=== PATIENT | male | born 1950 | race Caucasian/White ===

== ENCOUNTER 2017-05-11 14:01 | Inpatient (IN) | payer BC ==
[2017-05-11] MEDS ORDERED: KETOROLAC 30 MG/ML 1 ML VIAL IVP STA (15:29)
[2017-05-11] MEDS ORDERED: IPRATROPIUM-ALBUTEROL 3 ML NEB INHALATION STA (15:29)
[2017-05-11] MEDS ORDERED: SODIUM CHLORIDE 0.9% 1,000 ML IV STA ×2 (15:29)
[2017-05-11] MEDS ORDERED: ACETAMINOPHEN IV (For NPO) 1,000 MG in EMPTY BAG 1 BAG IVPB STA (15:29)
[2017-05-11] MEDS ORDERED: ONDANSETRON 4 MG/2 ML VIAL IVP STA (15:29)
[2017-05-11] MEDS ORDERED: SODIUM CHLORIDE 0.9% 500 ML IV STA (15:29)
[2017-05-11] MEDS ORDERED: MORPHINE SULFATE 4 MG/ML SYRINGE IV STA (15:29)
[2017-05-11 15:56] LABS: Appearance,Urine Clear (Clear); Bilirubin,Urine Negative (Negative); Blood,Urine Negative (Negative); Color,Urine Light Yellow; Glucose,Urine (UA) Trace (Negative); Ketones,Urine Trace (Negative); Leukocyte Esterase,Urine Negative (Negative); Nitrite,Urine Negative (Negative); PH, Urine 8.5 (5.0-8.0); Protein,Urine Negative (Negative); Specific Gravity,Urine 1.008 (1.001-1.035); Urobilinogen,Urine <2.0 mg/dL (<2.0)
[2017-05-11 15:58] LABS: Basophils % (A) 0 %; Eosinophils # (A) 0.1 k/uL (0-0.7); Eosinophils % (A) 1 %; HCT 46.3 % (39.0-53.0); HGB 17.1 gm/dL (13.0-17.5); Hyperchromasia Slight; Lymphocytes # (A) 2.6 k/uL (1.0-4.8); Lymphocytes % (A) 32 %; MCHC 36.9 g/dL (31.0-37.0); MCV 89.3 fL (80.0-100.0); Mean Platelet Volume 7.8; Monocytes # (A) 0.5 k/uL (0-1.0); Monocytes % (A) 6 %; Neutrophils # (A) 4.8 k/uL (1.3-7.7); Neutrophils % (A) 59 %; Platelet Count 291 k/uL (150-450); RBC 5.19 m/uL (4.30-5.90); RDW 12.6 % (11.5-15.5); WBC 8.2 k/uL (3.8-10.6)
--- NOTE | 2017-05-11 16:00 | ED ---
General Adult HPI - General Chief complaint: Shortness of Breath Stated complaint: fever-sent by Time Seen by Provider: 05/11/17 14:36 Source: patient, family, RN notes reviewed, old records reviewed Mode of arrival: wheelchair Limitations: no limitations - History of Present Illness Initial comments: This is a 66-year-old male the ER for evaluation today. Patient was essay for evaluation of multiple complaints. Patient has no significant medical history takes no medications. No history of smoking. Patient has cough congestion recent weakness fatigue and diffuse body pains. Patient has chills and sweats. Shortness of breath. Patient has not been out of bed in 2 days. No prior travel history otherwise, noted no sick contacts - Related Data Home Medications Medication Instructions Recorded Confirmed Zolpidem Tartrate [Ambien Cr] 12.5 mg PO HS 01/12/16 05/11/17 Schneider-3 Fatty Acids/Fish Oil [Fish 1 cap PO DAILY 05/11/17 05/11/17 Oil 1,000 mg Softgel] Allergies Allergy/AdvReac Type Severity Reaction Status Date / Time ciprofloxacin [From Cipro] Allergy Itching Verified 05/11/17 15:32 Review of Systems ROS Statement: Those systems with pertinent positive or pertinent negative responses have been documented in the HPI. ROS Other: All systems not noted in ROS Statement are negative. Past Medical History Past Medical History: Osteoarthritis (OA) Additional Past Medical History / Comment(s): History of Diverticulitis; Kidney Stones, vertigo History of Any Multi-Drug Resistant Organisms: None Reported Past Surgical History: Appendectomy, Back Surgery, Hernia Repair, Orthopedic Surgery Additional Past Surgical History / Comment(s): stated "removed 1/2 of my lt wrist 02-13-15",[facility], cataract sx. Past Anesthesia/Blood Transfusion Reactions: No Reported Reaction Additional Past Anesthesia/Blood Transfusion Reaction / Comment(s): claustrophobia,no hx blood transfusion Past Psychological History: No Psychological Hx Reported Smoking Status: Never smoker Past Alcohol Use History: None Reported Past Drug Use History: None Reported - Past Family History Brother(s) Additional Family Medical History / Comment(s): Agnieszka Gehrig's Disease Mother Family Medical History: No Reported History Additional Family Medical History / Comment(s): mostly in good health-did have valley fever(lost 1 toe) Father Family Medical History: No Reported History General Exam Limitations: no limitations General appearance: alert, in no apparent distress Head exam: Present: atraumatic, normocephalic, normal inspection Eye exam: Present: normal appearance, PERRL, EOMI. Absent: scleral icterus, conjunctival injection, periorbital swelling ENT exam: Present: normal exam, mucous membranes moist Neck exam: Present: normal inspection. Absent: tenderness, meningismus, lymphadenopathy Respiratory exam: Present: accessory muscle use, decreased breath sounds, prolonged expiratory. Absent: normal lung sounds bilaterally, respiratory distress, wheezes, rales, rhonchi, stridor Cardiovascular Exam: Present: regular rate, normal rhythm, normal heart sounds. Absent: systolic murmur, diastolic murmur, rubs, gallop, clicks GI/Abdominal exam: Present: soft, normal bowel sounds. Absent: distended, tenderness, guarding, rebound, rigid Extremities exam: Present: normal inspection, full ROM, normal capillary refill. Absent: tenderness, pedal edema, joint swelling, calf tenderness Back exam: Present: normal inspection Neurological exam: Present: alert, oriented X3, CN II-XII intact Psychiatric exam: Present: normal affect, normal mood Skin exam: Present: warm, dry, intact, normal color. Absent: rash Course Vital Signs 05/11/17 05/11/17 05/11/17 14:47 14:59 16:23 Temperature 97.7 F Pulse Rate 69 72 Respiratory 20 21 Rate Blood Pressure 111/78 O2 Sat by Pulse Oximetry 05/11/17 05/11/17 05/11/17 16:33 16:53 18:00 Temperature Pulse Rate 72 67 73 Respiratory 14 16 Rate Blood Pressure 119/63 122/71 O2 Sat by Pulse 98 96 Oximetry - Reevaluation(s) Reevaluation #1: 05/11/17 19:18 Patient is improved with breathing treatment, fever control and fluids EKG Findings - EKG Comments: EKG Findings:: EKG shows normal sinus rhythm rate of 70, NH 138, QRS 82, QTc 442 Medical Decision Making - Medical Decision Making 66 male the ER with aches pains fevers chills, positive pneumonia, no negative BNP, patient will be admitted for cardiology evaluation, pulmonary treatment - Lab Data Result diagrams: 05/11/17 14:40 05/11/17 14:40 Lab Results 05/11/17 05/11/17 05/11/17 Range/Units 14:40 14:40 14:40 WBC 8.2 (3.8-10.6) k/uL RBC 5.19 (4.30-5.90) m/uL Hgb 17.1 (13.0-17.5) gm/dL Hct 46.3 (39.0-53.0) % MCV 89.3 (80.0-100.0) fL MCH 33.0 (25.0-35.0) pg MCHC 36.9 (31.0-37.0) g/dL RDW 12.6 (11.5-15.5) % Plt Count 291 (150-450) k/uL Neutrophils % 59 % Lymphocytes % 32 % Monocytes % 6 % Eosinophils % 1 % Basophils % 0 % Neutrophils # 4.8 (1.3-7.7) k/uL Lymphocytes # 2.6 (1.0-4.8) k/uL Monocytes # 0.5 (0-1.0) k/uL Eosinophils # 0.1 (0-0.7) k/uL Basophils # 0.0 (0-0.2) k/uL Hyperchromasia Slight VBG pH (7.31-7.41) VBG pCO2 (37-51) mmHg VBG HCO3 (24-28) mmol/L Sodium 140 (137-145) mmol/L Potassium 4.5 (3.5-5.1) mmol/L Chloride 101 (98-107) mmol/L Carbon Dioxide 24 (22-30) mmol/L Anion Gap 15 mmol/L BUN 13 (9-20) mg/dL Creatinine 0.70 (0.66-1.25) mg/dL Est GFR (CKD-EPI)AfAm >90 (>60 ml/min/1.73 sqM) Est GFR (CKD-EPI)NonAf >90 (>60 ml/min/1.73 sqM) Glucose 123 H (74-99) mg/dL Lactic Ac Sepsis Rflx Plasma Lactic Acid Henry (0.7-2.0) mmol/L Calcium 10.1 (8.4-10.2) mg/dL Phosphorus 2.5 (2.5-4.5) mg/dL Magnesium 2.0 (1.6-2.3) mg/dL Total Bilirubin 0.8 (0.2-1.3) mg/dL AST 39 (17-59) U/L ALT 53 (21-72) U/L Alkaline Phosphatase 110 (38-126) U/L Total Creatine Kinase 57 (55-170) U/L CK-MB (CK-2) 0.4 (0.0-2.4) ng/mL CK-MB (CK-2) Rel Index 0.7 Troponin I <0.012 (0.000-0.034) ng/mL NT-Pro-B Natriuret Pep pg/mL Total Protein 7.7 (6.3-8.2) g/dL Albumin 4.5 (3.5-5.0) g/dL Urine Color Urine Appearance (Clear) Urine pH (5.0-8.0) Ur Specific Madison (1.001-1.035) Urine Protein (Negative) Urine Glucose (UA) (Negative) Urine Ketones (Negative) Urine Blood (Negative) Urine Nitrite (Negative) Urine Bilirubin (Negative) Urine Urobilinogen (<2.0) mg/dL Ur Leukocyte Esterase (Negative) Acetone, Qual Negative (Negative) 05/11/17 05/11/17 05/11/17 Range/Units 14:40 14:40 14:40 WBC (3.8-10.6) k/uL RBC (4.30-5.90) m/uL Hgb (13.0-17.5) gm/dL Hct (39.0-53.0) % MCV (80.0-100.0) fL MCH (25.0-35.0) pg MCHC (31.0-37.0) g/dL RDW (11.5-15.5) % Plt Count (150-450) k/uL Neutrophils % % Lymphocytes % % Monocytes % % Eosinophils % % Basophils % % Neutrophils # (1.3-7.7) k/uL Lymphocytes # (1.0-4.8) k/uL Monocytes # (0-1.0) k/uL Eosinophils # (0-0.7) k/uL Basophils # (0-0.2) k/uL Hyperchromasia VBG pH (7.31-7.41) VBG pCO2 (37-51) mmHg VBG HCO3 (24-28) mmol/L Sodium (137-145) mmol/L Potassium (3.5-5.1) mmol/L Chloride (98-107) mmol/L Carbon Dioxide (22-30) mmol/L Anion Gap mmol/L BUN (9-20) mg/dL Creatinine (0.66-1.25) mg/dL Est GFR (CKD-EPI)AfAm (>60 ml/min/1.73 sqM) Est GFR (CKD-EPI)NonAf (>60 ml/min/1.73 sqM) Glucose (74-99) mg/dL Lactic Ac Sepsis Rflx Plasma Lactic Acid Henry 2.5 H* (0.7-2.0) mmol/L Calcium (8.4-10.2) mg/dL Phosphorus (2.5-4.5) mg/dL Magnesium (1.6-2.3) mg/dL Total Bilirubin (0.2-1.3) mg/dL AST (17-59) U/L ALT (21-72) U/L Alkaline Phosphatase (38-126) U/L Total Creatine Kinase (55-170) U/L CK-MB (CK-2) (0.0-2.4) ng/mL CK-MB (CK-2) Rel Index Troponin I (0.000-0.034) ng/mL NT-Pro-B Natriuret Pep 32 pg/mL Total Protein (6.3-8.2) g/dL Albumin (3.5-5.0) g/dL Urine Color Light Yellow Urine Appearance Clear (Clear) Urine pH 8.5 H (5.0-8.0) Ur Specific Madison 1.008 (1.001-1.035) Urine Protein Negative (Negative) Urine Glucose (UA) Trace H (Negative) Urine Ketones Trace H (Negative) Urine Blood Negative (Negative) Urine Nitrite Negative (Negative) Urine Bilirubin Negative (Negative) Urine Urobilinogen <2.0 (<2.0) mg/dL Ur Leukocyte Esterase Negative (Negative) Acetone, Qual (Negative) 05/11/17 05/11/17 Range/Units 15:50 16:13 WBC (3.8-10.6) k/uL RBC (4.30-5.90) m/uL Hgb (13.0-17.5) gm/dL Hct (39.0-53.0) % MCV (80.0-100.0) fL MCH (25.0-35.0) pg MCHC (31.0-37.0) g/dL RDW (11.5-15.5) % Plt Count (150-450) k/uL Neutrophils % % Lymphocytes % % Monocytes % % Eosinophils % % Basophils % % Neutrophils # (1.3-7.7) k/uL Lymphocytes # (1.0-4.8) k/uL Monocytes # (0-1.0) k/uL Eosinophils # (0-0.7) k/uL Basophils # (0-0.2) k/uL Hyperchromasia VBG pH 7.43 H (7.31-7.41) VBG pCO2 33 L (37-51) mmHg VBG HCO3 22 L (24-28) mmol/L Sodium (137-145) mmol/L Potassium (3.5-5.1) mmol/L Chloride (98-107) mmol/L Carbon Dioxide (22-30) mmol/L Anion Gap mmol/L BUN (9-20) mg/dL Creatinine (0.66-1.25) mg/dL Est GFR (CKD-EPI)AfAm (>60 ml/min/1.73 sqM) Est GFR (CKD-EPI)NonAf (>60 ml/min/1.73 sqM) Glucose (74-99) mg/dL Lactic Ac Sepsis Rflx Y Plasma Lactic Acid Henry (0.7-2.0) mmol/L Calcium (8.4-10.2) mg/dL Phosphorus (2.5-4.5) mg/dL Magnesium (1.6-2.3) mg/dL Total Bilirubin (0.2-1.3) mg/dL AST (17-59) U/L ALT (21-72) U/L Alkaline Phosphatase (38-126) U/L Total Creatine Kinase (55-170) U/L CK-MB (CK-2) (0.0-2.4) ng/mL CK-MB (CK-2) Rel Index Troponin I (0.000-0.034) ng/mL NT-Pro-B Natriuret Pep pg/mL Total Protein (6.3-8.2) g/dL Albumin (3.5-5.0) g/dL Urine Color Urine Appearance (Clear) Urine pH (5.0-8.0) Ur Specific Madison (1.001-1.035) Urine Protein (Negative) Urine Glucose (UA) (Negative) Urine Ketones (Negative) Urine Blood (Negative) Urine Nitrite (Negative) Urine Bilirubin (Negative) Urine Urobilinogen (<2.0) mg/dL Ur Leukocyte Esterase (Negative) Acetone, Qual (Negative) - Radiology Data Radiology results: report reviewed (CTA chest CT abdomen and pelvis positive for CHF type of issue, likely atypical pneumonia), image reviewed Disposition Clinical Impression: Acute pulmonary edema, Community acquired pneumonia Disposition: ADMITTED IP TO THIS HOSP Condition: Good Referrals: Misael Carpio MD [Primary Care Provider] - 1-2 days
[2017-05-11 16:08] LABS: VBG PH 7.43 (7.31-7.41)
[2017-05-11 16:10] LABS: ALT 53 U/L (21-72); AST 39 U/L (17-59); Albumin 4.5 g/dL (3.5-5.0); Alkaline Phosphatase 110 U/L (38-126); Anion Gap 15 mmol/L; Blood Urea Nitrogen 13 mg/dL (9-20); Calcium 10.1 mg/dL (8.4-10.2); Carbon Dioxide 24 mmol/L (22-30); Chloride 101 mmol/L (98-107); Glucose 123 mg/dL (74-99); Phosphorus 2.5 mg/dL (2.5-4.5); Potassium 4.5 mmol/L (3.5-5.1); Sodium 140 mmol/L (137-145); Total Bilirubin 0.8 mg/dL (0.2-1.3); Total Protein 7.7 g/dL (6.3-8.2)
[2017-05-11 16:24] LABS: Creatine Kinase 57 U/L (55-170)
[2017-05-11 16:36] LABS: Creatine Kinase MB 0.4 ng/mL (0.0-2.4); Troponin I <0.012 ng/mL (0.000-0.034)
[2017-05-11] MEDS ORDERED: RX INFO: IV CONTRAST WAS GIVEN 1 EACH MISC MISCELLANE PRN (17:04)
--- NOTE | 2017-05-11 17:48 | CT ---
EXAMINATION TYPE: CT angio chest DATE OF EXAM: 05/11/2017 COMPARISON: Prior CTA chest March 03, 2015 HISTORY: Fever CT DLP: 456.6 mGycm. Automated Exposure Control for Dose Reduction was Utilized. CONTRAST: CTA scan of the thorax is performed with IV Contrast, patient injected with 100ml mL of Omnipaque 350 , pulmonary embolism protocol. MIP Images are created on CT scanner and reviewed. FINDINGS: LUNGS: There is respiratory motion artifact degradation making evaluation suboptimal particularly for subcentimeter nodularity. Some increased groundglass opacity bilaterally could reflect mild diffuse edema. No suspicious focal consolidation is present. No pleural effusion or pneumothorax is seen. No suspicious pulmonary mass identified. Tracheobronchial tree is patent. MEDIASTINUM: There is suboptimal study with poor bolus and near equal contrast in right and left hear t systems. There is no central pulmonary embolism, smaller segmental and subsegmental PE cannot be e xcluded on this exam. There are no greater than 1 cm hilar or mediastinal lymph nodes. There is tiny pericardial effusion seen inferiorly. Mild cardiomegaly is present. There is coronary artery calcific ation which is noted marker for coronary artery disease. OTHER: Please refer to same day CT abdomen and pelvis study for complete details on upper abdomen. IMPRESSION: 1. Suboptimal study without large central pulmonary embolism, smaller segmental and subsegmental PE c annot be excluded on this study. 2. Mild cardiomegaly with mild diffuse bilateral alveolar edema suspected, correlate for CHF exacerba tion. No suspicious focal consolidation noted.
--- NOTE | 2017-05-11 18:35 | CT ---
EXAMINATION TYPE: CT abdomen pelvis w con DATE OF EXAM: 05/11/2017 COMPARISON: CT abdomen and pelvis January 15, 2016 HISTORY: Fever CT DLP: 1007.5 mGycm, Automated Exposure Control for Dose Reduction was Utilized. CONTRAST: CT scan of the abdomen and pelvis is performed without oral but with IV Contrast, patient injected wi th 100ml mL of Omnipaque 300. FINDINGS: LUNG BASES: Please refer to same day CTA chest report. LIVER/GB: Visualized liver is hypodense consistent with fatty infiltration. PANCREAS: No significant abnormality is seen. SPLEEN: No significant abnormality is seen. ADRENALS: No significant abnormality is seen. KIDNEYS: No significant abnormality is seen. BOWEL: Evaluation of bowel is suboptimal secondary to lack of enteric contrast. There is no suspiciou s small or large bowel dilatation. There are diverticula scattered throughout the colon. There is no convincing CT evidence for acute diverticulitis. PROSTATE/SEMINAL VESICLES: No gross abnormality seen. LYMPH NODES: No greater than 1cm abdominal or pelvic lymph nodes are appreciated. OSSEOUS STRUCTURES: There is reversal of normal lumbar lordosis with moderate to advanced multilevel spurring and disc space narrowing most prominent L2-L3 and L4-L5 levels. Posterior spur disc complexe s effacing anterior thecal sac at L2-L3 level. OTHER: Numerous coils from left inguinal hernia repair surgery are identified in the left groin. IMPRESSION: Diverticulosis without CT evidence for acute diverticulitis. No suspicious acute finding is seen to account for patient's symptoms of fever.
[2017-05-11] MEDS ORDERED: AZITHROMYCIN 500 MG in SODIUM CHLORIDE 0.9% 250 ML IVPB STA (19:16)
[2017-05-11] MEDS ORDERED: IPRATROPIUM-ALBUTEROL 3 ML NEB INHALATION PRN (19:16)
[2017-05-11] MEDS ORDERED: PIPERACILLIN-TAZOBACTAM 3.375 GM in DEXTROSE/WATER 1 50ML.BAG IVPB STA (19:16)
[2017-05-11] MEDS ORDERED: cefTRIAXone IN SWFI 1,000 MG/10 ML SYRINGE IVP STA (19:16)
[2017-05-11] MEDS ORDERED: PNEUMONIA PROTOCOL UTILIZED 1 EACH MISC PO PRN (19:16)
[2017-05-11] MEDS ORDERED: HYDROcodone/APAP 5-325MG 1 EACH TAB PO STA (23:53)
[2017-05-12] MEDS: SODIUM CHLORIDE 0.9% 1,000 ML IV SCH ×3 (00:19→15:57)
[2017-05-12] MEDS: ZOLPIDEM 10 MG TAB PO SCH ×2 (00:27→22:32)
[2017-05-12] MEDS: PIPERACILLIN-TAZOBACTAM 3.375 GM in DEXTROSE/WATER 1 50ML.BAG IVPB SCH ×2 (00:27→07:58)
[2017-05-12] MEDS: AZITHROMYCIN 500 MG TAB PO SCH (07:58)
[2017-05-12] MEDS: cefTRIAXone IN SWFI 1,000 MG/10 ML SYRINGE IVP SCH (07:58)
[2017-05-12] MEDS: ACETAMINOPHEN TAB 325 MG TAB PO PRN ×2 (07:59→20:33)
--- NOTE | 2017-05-12 08:37 | XR ---
EXAMINATION TYPE: XR chest 2V DATE OF EXAM: 05/12/2017 COMPARISON: 01/15/2016 INDICATION: Pneumonia TECHNIQUE: Frontal and lateral views of the chest are obtained. FINDINGS: The heart size is normal. The pulmonary vasculature is normal. The lungs are clear. IMPRESSION: 1. No acute pulmonary process.
--- NOTE | 2017-05-12 15:49 | US ---
EXAMINATION TYPE: US venous doppler duplex LE BI DATE OF EXAM: 05/12/2017 3:37 PM COMPARISON: NONE CLINICAL HISTORY: r/o dvt. Bilateral knee pain SIDE PERFORMED: Bilateral TECHNIQUE: The lower extremity deep venous system is examined utilizing real time linear array sonog cole with graded compression, doppler sonography and color-flow sonography. VESSELS IMAGED: External Iliac Vein (EIV) Common Femoral Vein Deep Femoral Vein Greater Saphenous Vein * Femoral Vein Popliteal Vein Small Saphenous Vein * Proximal Calf Veins (* superficial vessels) Right Leg: Appears negative for DVT Left Leg: Appears negative for DVT IMPRESSION: 1. No diagnostic evidence of DVT
[2017-05-12] MEDS: ENOXAPARIN 40 MG/0.4 ML SYRINGE SQ SCH (15:57)
--- NOTE | 2017-05-12 15:59 | HP ---
HISTORY AND PHYSICAL DATE OF ADMISSION: 05/11/17. PRESENT COMPLAINT: Weak, tired, chills. HISTORY OF PRESENTING COMPLAINT: A very pleasant 66-year-old patient of Dr. Carpio, who for 2 weeks has been continuously feeling weak and denies any fevers, but having chills. Appetite has been okay. Had loose stool. No urine symptoms. Denies any cough or sputum, but getting tired, sleeping a lot, having some pain around both the knees, but no redness. Just tired and run down. Patient went down to the local office and was sent down to the ER. Chest x- ray was showing possible infiltrates. Started on antibiotics. No cough, no sputum. Feels a bit better after getting admitted, was put on IV ceftriaxone and Zithromax. The patient has family members and nobody sick. The patient has horses. No symptoms there. The patient is rather active otherwise. REVIEW OF SYSTEMS: CONSTITUTIONAL: Tired, chills. HEENT: None. RESPIRATORY: Tired easily. CARDIOVASCULAR: None. GASTROINTESTINAL: Denies. MUSCULOSKELETAL: Pain in the knee and some other joints. DERMATOLOGICAL: None. HEMATOLOGIC: None. LYMPHATIC: None. PSYCHIATRY: None. NEUROLOGICAL: None. PAST MEDICAL HISTORY: Osteoarthritis, diverticulitis, kidney stones. PAST SURGICAL HISTORY: Appendectomy, back surgery, hernia repair, bilateral shoulder surgery, bilateral cataract. SOCIAL HISTORY: No smoking, no alcohol. 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 . FAMILY HISTORY: Reviewed, noncontributory to presentation. HOME MEDICATIONS: Ambien CR 12.5 q.h.s., fish oil 1000 mg daily. ALLERGIES: CIPRO. PHYSICAL EXAMINATION: VITAL SIGNS ON PRESENTATION: Afebrile, pulse 95, respiratory 18, blood pressure 116/64, pulse 100% on 2 L. GENERAL APPEARANCE: Well built, BMI 33.5, sitting up, tired appearing. EYES: Pupils equal. Conjunctivae normal. HEENT: External appearance of nose and ears normal. Oral cavity normal. NECK: JVD not raised. Mass not palpable. RESPIRATORY: Effort, lungs slightly decreased breath sounds. CARDIOVASCULAR: First and second sounds, no edema. ABDOMEN: Soft, nontender. Liver and spleen not palpable. LYMPHATIC: No lymph palpable in the neck or axillae. PSYCHIATRY: Alert and oriented x3. Mood and affect normal. NEUROLOGICAL: Pupils equal. Cranial nerves grossly intact. Power and sensation grossly intact. INVESTIGATIONS: White count 8.2, hemoglobin 13.1, potassium 4.5, BUN and creatinine are normal. Lactic acid was 2.5. UA shows some trains of ketones. Influenza A and B is negative. CT scan of the abdomen and pelvis shows diverticulosis. No evidence of diverticulitis. Chest CTA, no obvious PE reported. Chest x-ray questionable prominent pulmonary artery. ASSESSMENT: 1. This is a patient who presented weak, tired with some chills for 2 weeks, tired, rundown. Patient may have acute pneumonitis with a viral fatigue syndrome. CT scan was not a very good quality. We will have to do Doppler of both lower extremities. 2. Primary osteoarthritis multiple joints including the knees. PLAN: The patient was started on antibiotics in the ER. IV fluids. Will do Doppler ultrasound of lower extremities. The patient is feeling better. Copy to Dr. Carpio. Care was discussed with the patient at length. MMODL / IJN: [id number] /
--- NOTE | 2017-05-12 18:01 | ECHOF ---
Referral Reason:chf MEASUREMENTS -------- HEIGHT: 175.3 cm WEIGHT: 103.0 kg BP: 107/54 RVIDd: 3.5 cm (< 3.3) IVSd: 1.2 cm (0.6 - 1.1) LVIDd: 5.1 cm (3.9 - 5.3) LVPWd: 1.1 cm (0.6 - 1.1) IVSs: 1.6 cm LVIDs: 3.4 cm LVPWs: 1.4 cm LAESV Index (A-L): 24.06 ml/m Ao Diam: 3.0 cm (2.0 - 3.7) AV Cusp: 2.1 cm (1.5 - 2.6) LA Diam: 3.7 cm (2.7 - 3.8) EPSS: 0.5 cm MV E Anam: 0.95 m/s MV DecT: 320 ms MV A Anam: 0.97 m/s MV E/A Ratio: 0.98 RAP: 5.00 mmHg RVSP: 17.62 mmHg MV EF SLOPE: 137.97 mm/s (70 - 150) MV EXCURSION: 2.24 cm (> 18.000) FINDINGS -------- Sinus rhythm. This was a technically adequate study. The left ventricular size is normal. There is mild concentric left ventricular hypertrophy. Overa ll left ventricular systolic function is normal with, an EF between 55 - 60 %. The right ventricle is mild to moderately enlarged. Normal LA size by volume 22+/-6 ml/m2. RA appears enlarged. The aortic valve is trileaflet, and appears structurally normal. No aortic stenosis or regurgitation. The mitral valve leaflets are mildly thickened. There is trace to mild mitral regurgitation. Trace tricuspid regurgitation present. Right ventricular systolic pressure is normal at < 35 mmHg. There is no evidence of pulmonary hypertension. Trace/mild (physiologic) pulmonic regurgitation. The aortic root size is normal. Normal inferior vena cava with normal inspiratory collapse consistent with estimated right atrial pre ssure of 5 mmHg. The pericardium is normal. There is no pericardial effusion. CONCLUSIONS -------- 1. Sinus rhythm. 2. This was a technically adequate study. 3. The left ventricular size is normal. 4. There is mild concentric left ventricular hypertrophy. 5. Overall left ventricular systolic function is normal with, an EF between 55 - 60 %. 6. The right ventricle is mild to moderately enlarged. 7. Normal LA size by volume 22+/-6 ml/m2. 8. RA appears enlarged. 9. The aortic valve is trileaflet, and appears structurally normal. No aortic stenosis or regurgitati on. 10. The mitral valve leaflets are mildly thickened. 11. There is trace to mild mitral regurgitation. 12. Trace tricuspid regurgitation present. 13. Right ventricular systolic pressure is normal at < 35 mmHg. 14. There is no evidence of pulmonary hypertension. 15. Trace/mild (physiologic) pulmonic regurgitation. 16. The aortic root size is normal. 17. There is no pericardial effusion. PATTERN MAKER: Albert Collier RDCS
[2017-05-13] MEDS: SODIUM CHLORIDE 0.9% 1,000 ML IV SCH ×2 (04:32→11:42)
[2017-05-13 07:30] VITALS: BP 131/71; PULSE 68; RESP 16; TEMP 97.9
[2017-05-13] MEDS: cefTRIAXone IN SWFI 1,000 MG/10 ML SYRINGE IVP SCH (08:12)
[2017-05-13] MEDS: ENOXAPARIN 40 MG/0.4 ML SYRINGE SQ SCH (08:12)
[2017-05-13] MEDS: AZITHROMYCIN 500 MG TAB PO SCH (08:12)
[2017-05-13 12:10] LABS: Basophils % (A) 1 %; Eosinophils # (A) 0.1 k/uL (0-0.7); Eosinophils % (A) 1 %; HCT 46.5 % (39.0-53.0); HGB 16.6 gm/dL (13.0-17.5); Lymphocytes # (A) 2.6 k/uL (1.0-4.8); Lymphocytes % (A) 34 %; MCH 32.4 pg (25.0-35.0); MCHC 35.7 g/dL (31.0-37.0); MCV 90.8 fL (80.0-100.0); Mean Platelet Volume 7.6; Monocytes # (A) 0.5 k/uL (0-1.0); Monocytes % (A) 6 %; Neutrophils # (A) 4.5 k/uL (1.3-7.7); Neutrophils % (A) 57 %; Platelet Count 290 k/uL (150-450); RBC 5.12 m/uL (4.30-5.90); RDW 12.5 % (11.5-15.5); WBC 7.8 k/uL (3.8-10.6)
--- NOTE | 2017-05-14 18:46 | DS ---
DISCHARGE SUMMARY DATE OF ADMISSION: May 11, 2017. DATE OF DISCHARGE: May 13, 2017. FINAL DIAGNOSES: 1. Possible atypical pneumonia or possible pneumonitis could be viral too. 2. Primary osteoarthritis multiple joints including knees. HOSPITAL COURSE: This patient presented with chills, not feeling well. Easily getting short winded. Chest x-ray showed some possible infiltrates, was started on IV ceftriaxone and Zithromax. Doing better by the time of discharge. The patient's chest x-ray was negative for PE and Doppler ultrasound also negative for DVT. The patient doing much better at the time of discharge. EXAM: Lungs are clear. Cardiovascular: 1st and second sounds normal. Care was discussed with the patient. Questions answered. DISCHARGE MEDICATIONS: 1. Zithromax 100 mg a day for 4 tablets. 2. Fish oil 1000 mg daily. 3. Ambien CR 12.5 p.o. q.h.s. Follow up with Dr. Carpio in [address] Carpio. MMTETOL / IJN: [id number] /
== END 2017-05-13 14:44 | disposition home or self-care (01) | DRG 193 ==
LOC: EC 14:01 → 4MS4W 19:16
PROVIDERS: ADMIT Hospitalist; ATTEND Hospitalist
DX: J18.9 Pneumonia, unspecified organism (principal); J81.0 Acute pulmonary edema; F40.240 Claustrophobia; J12.9 Viral pneumonia, unspecified; M15.9 Polyosteoarthritis, unspecified; K57.90 Diverticulosis of intestine, part unspecified, without perforation or abscess without bleeding; Z87.442 Personal history of urinary calculi; Z88.1 Allergy status to other antibiotic agents; Z90.49 Acquired absence of other specified parts of digestive tract
CPT/HCPCS: 36415; 71046; 71275; 74177; 80053; 81003; 82009; 82550; 82553; 82803; 83605; 83735; 83880; 84100; 84484; 85025; 87040; 87086; 87502; 93005; 93306; 93970; 94640; 96361; 96365; 96367; 96375; 99285

== ENCOUNTER → 2017-06-30 | Outpatient (CLI) | payer BC ==
[2017-06-30 09:55] LABS: HCT 50.1 % (39.0-53.0); HGB 16.8 gm/dL (13.0-17.5); MCHC 33.5 g/dL (31.0-37.0); MCV 92.6 fL (80.0-100.0); Mean Platelet Volume 7.6; Platelet Count 286 k/uL (150-450); RBC 5.41 m/uL (4.30-5.90); RDW 12.9 % (11.5-15.5); WBC 14.9 k/uL (3.8-10.6)
[2017-06-30 10:04] LABS: Anion Gap 17 mmol/L; Blood Urea Nitrogen 22 mg/dL (9-20); Carbon Dioxide 27 mmol/L (22-30); Chloride 100 mmol/L (98-107); Potassium 4.8 mmol/L (3.5-5.1); Sodium 144 mmol/L (137-145)
== END | disposition home or self-care (01) ==
LOC: LABPAT 09:08
PROVIDERS: ATTEND Internal Medicine Cardiovascular Disease
DX: Z01.812 Encounter for preprocedural laboratory examination (principal); I25.10 Atherosclerotic heart disease of native coronary artery without angina pectoris
CPT/HCPCS: 80051; 82565; 84520; 85027

== ENCOUNTER 2017-07-05 07:47 | Day surgery (SDC) | payer BC ==
[2017-06-30 14:07] VITALS: BMI 32.5
[~2017-07-05 07:47] MED LIST: ALPRAZolam 0.25 MG TAB PO PRN; ASPIRIN 325 MG TAB PO ONE; SODIUM CHLORIDE 0.9% 1,000 ML in EMPTY BAG 1 BAG IV ONE
[2017-07-05] MEDS ORDERED: MIDAZOLAM 2 MG/2 ML VIAL ONE (09:02)
[2017-07-05] MEDS ORDERED: LIDOCAINE 2% INJ 20 MG/ML (20 ML MDV) ONE ×2 (09:02→10:19)
[2017-07-05] MEDS ORDERED: fentaNYL (PF) 50 MCG/ML 2 ML AMP ONE (09:02)
[2017-07-05] MEDS ORDERED: MIDAZOLAM 2 MG/2 ML VIAL IVP ONE (09:09)
[2017-07-05] MEDS: fentaNYL (PF) 50 MCG/ML 2 ML AMP IVP ONE ×2 (09:10→09:31)
[2017-07-05] MEDS ORDERED: LIDOCAINE 2% INJ 20 MG/ML SQ ONE (09:12)
[2017-07-05] MEDS ORDERED: IOPAMIDOL-370 125ML BTL INJ ONE (09:31)
--- NOTE | 2017-07-05 10:09 | CC ---
CARDIAC CATHETERIZATION REPORT INDICATION: Unstable angina. This is a 66-year-old gentleman with history of dyslipidemia who presented to us with symptoms of shortness of breath and on a stress test, had ischemia involving the apex. Due to this, he was advised to undergo cardiac catheterization. His symptoms were suggestive of unstable angina. PROCEDURE NOTE: After obtaining informed consent, left heart catheterization and coronary angiogram were performed via the right femoral artery using standard Robson catheters. Patient tolerated the procedure well without any obvious immediate complications. Patient received moderate conscious sedation and total sedation time was 18 minutes. FINDINGS: 1. HEMODYNAMICS: Left ventricular end-diastolic pressure is 16 to 18 mm. There is no significant gradient across aortic valve. 2. LEFT VENTRICULOGRAM: Left ventriculogram was not performed. 3. ANGIOGRAPHIC DATA: 4. LEFT MAIN CORONARY ARTERY: Left main coronary artery is a normal-sized vessel and is free of stenosis. Divides into left anterior descending coronary artery and circumflex coronary artery. LAD is a small caliber vessel, gives off a large caliber diagonal branch. The LAD has a 70% to 80% stenosis in its midportion. Diagonal branch has a 60% to 70% stenosis in its proximal part. The very distal circ has an 80% stenosis but it is very distal. Right coronary artery is a large dominant vessel that shows a 95% stenosis involving a focal area in its midportion. CONCLUSION: Severe stenosis involving right coronary artery, LAD and diagonal. PLAN: I advised the patient to undergo multivessel angioplasty. Dr. Sanjuanita Fulton, the on-call health promotion officer will perform these. MMODL / IJN: [id number] /
--- NOTE | 2017-07-05 10:15 | LTR ---
DATE OF SERVICE: 07/05/2017 RE: Tino Babin Dear Misael; I performed cardiac catheterization on Tino Babin. A detailed catheterization note will be sent for your personal records. In brief, the cardiac catheterization revealed a 95% stenosis involving mid RCA, a 70% to 80% stenosis involving mid LAD. I believe the lesion in the right coronary artery is responsible for patient's symptoms and patient will undergo angioplasty of the right coronary artery and LAD. Thank you for giving me the privilege of participating in the care of this pleasant gentleman. Sincerely, MD CHRIST Schwartz / CARLOS ALBERTO: [id number] /
[2017-07-05] MEDS ORDERED: BIVALIRUDIN BOLUS 250 MG/50 ML IV ONE (10:56)
[2017-07-05] MEDS ORDERED: BIVALIRUDIN 250 MG in SODIUM CHLORIDE 0.9% 50 ML IV ONE (10:57)
[2017-07-05] MEDS ORDERED: NITROGLYCERIN 1000MCG/10ML SYRINGE INTRACORON ONE (11:09)
[2017-07-05] MEDS ORDERED: TICAGRELOR 90 MG TAB ONE (11:12)
[2017-07-05] MEDS ORDERED: MORPHINE SULFATE 4 MG/ML SYRINGE ONE (11:14)
[2017-07-05] MEDS ORDERED: MORPHINE SULFATE 4 MG/ML SYRINGE IVP ONE (11:15)
[2017-07-05] MEDS ORDERED: TICAGRELOR 90 MG TAB PO ONE (11:18)
[2017-07-05] MEDS ORDERED: IOPAMIDOL-370 100ML BTL INJ ONE (11:18)
[2017-07-05] MEDS ORDERED: ATROPINE SULFATE 0.1 MG/ML 10ML SYRINGE IV PRN (11:28)
[2017-07-05] MEDS ORDERED: MAG HYDROX/AL HYDROX/SIMETH 30 ML CUP PO PRN (11:28)
[2017-07-05] MEDS ORDERED: RX INFO: IV CONTRAST WAS GIVEN 1 EACH MISC MISCELLANE PRN (11:28)
[2017-07-05] MEDS ORDERED: ZOLPIDEM 5 MG TAB PO PRN (11:28)
[2017-07-05] MEDS ORDERED: NITROGLYCERIN SL TABS 0.4 MG TAB SUBLINGUAL PRN ×2 (11:28→11:31)
[2017-07-05] MEDS ORDERED: MECLIZINE 25 MG TAB PO PRN (11:31)
[2017-07-05] MEDS: SODIUM CHLORIDE 0.9% 1,000 ML IV SCH ×2 (14:09→21:07)
--- NOTE | 2017-07-05 15:27 | PTCA ---
PERCUTANEOUSTRANS CORORONARY ANGIOGRAPHY DATE OF SERVICE: 07/05/2017. PROCEDURE: PTCA and stenting of mid RCA which was a very dominant large vessel with a drug-eluting stent. PERFORMED BY: Dr. Sanjuanita Fulton. ANESTHESIA: Moderate conscious sedation time was 26 minutes. Patient was monitored closely with oxygen saturation, hemodynamics and EKG. CLINICAL INFORMATION: Mr. Tino Babin is a 66-year-old gentleman with a history hypertension, hyperlipidemia, who saw Dr. Omer and had a significant apical reversible defect and he was advised coronary angiography. Dr. Omer performed coronary angiography which revealed a lesion in the mid LAD, diagonal branch as well as the mid RCA. RCA was a large caliber, large distribution vessel. There was distal circumflex disease as well. He was advised intervention that was performed on the same day. PROCEDURE NOTE: The existing 6-German introducer in the right femoral artery was used to perform procedure. I used a standard right Robson guide catheter to cannulate the right coronary artery. I used a run-through wire to cross the lesion. Predilatation was performed using a 12 mm long NC Trek balloon. I then deployed a 15 mm long 4.0 caliber Xience stent at 14 atmospheres. Patient had chest pain and subtle inferior ST elevation. Excellent angiographic result was achieved. Patient received Angiomax bolus and infusion. He received 180 mg of Brilinta. The sheath was taken out and a Perclose device used to secure hemostasis and he was sent to the room in a stable condition. Results were discussed with the patient and his . Patient will have LAD intervention performed in probably a couple of weeks. MMODL / IJN: [id number] /
--- NOTE | 2017-07-05 15:30 | LTR ---
DATE OF SERVICE: 07/05/2017 RE: Olaf Tino Dear Dr. Carpio; Thank you for the opportunity to participate in the care of Mr. Tino Babin. I am pleased to report to you that he had an excellent angiographic result. Mid LAD which is a very dominant vessel was stented with a drug-eluting stent. He has disease in LAD, diagonal, and also distal circumflex. The LAD, diagonal should be addressed at a later date. Hopefully with heavy calcium, we may need to do orbital atherectomy for this patient. He should be on dual antiplatelet therapy without interruption for at least 1 year. Thank you for your referral and please call for questions. With kindest regards. Sincerely yours, MD BRITT FuentesL / CARLOS ALBERTO: [id number] /
[2017-07-05] MEDS: BENZONATATE 100 MG CAP PO SCH (16:06)
[2017-07-05] MEDS: METOPROLOL SUCCINATE (ER) 25 MG TAB.ER.24H PO SCH (16:07)
[2017-07-05] MEDS: ISOSORBIDE MONONITRATE ER 30 MG TAB.ER.24H PO SCH (16:07)
[2017-07-05] MEDS: TICAGRELOR 90 MG TAB PO SCH (20:54)
[2017-07-05] MEDS: GABAPENTIN 300 MG CAP PO SCH (20:57)
[2017-07-05] MEDS ORDERED: ATORVASTATIN 80 MG TAB PO SCH (21:00)
[2017-07-05] MEDS ORDERED: METOPROLOL SUCCINATE (ER) 25 MG TAB.ER.24H PO SCH (21:00)
[2017-07-05] MEDS ORDERED: ACETAMINOPHEN TAB 325 MG TAB PO PRN (22:24)
[2017-07-06 07:22] LABS: Basophils % (A) 0 %; Eosinophils # (A) 0.1 k/uL (0-0.7); Eosinophils % (A) 1 %; HCT 39.8 % (39.0-53.0); HGB 13.9 gm/dL (13.0-17.5); Lymphocytes # (A) 2.1 k/uL (1.0-4.8); Lymphocytes % (A) 29 %; MCH 31.9 pg (25.0-35.0); MCHC 34.9 g/dL (31.0-37.0); MCV 91.5 fL (80.0-100.0); Monocytes # (A) 0.3 k/uL (0-1.0); Monocytes % (A) 4 %; Neutrophils # (A) 4.6 k/uL (1.3-7.7); Neutrophils % (A) 64 %; Platelet Count 202 k/uL (150-450); RBC 4.36 m/uL (4.30-5.90); RDW 13.3 % (11.5-15.5); WBC 7.2 k/uL (3.8-10.6)
[2017-07-06 07:24] LABS: Anion Gap 7 mmol/L; Blood Urea Nitrogen 15 mg/dL (9-20); Calcium 8.3 mg/dL (8.4-10.2); Carbon Dioxide 31 mmol/L (22-30); Chloride 100 mmol/L (98-107); Glucose 126 mg/dL (74-99); Potassium 4.2 mmol/L (3.5-5.1); Sodium 138 mmol/L (137-145)
[2017-07-06 08:03] VITALS: BP 128/63; PULSE 71; RESP 18; TEMP 96.7
[2017-07-06] MEDS ORDERED: METOPROLOL SUCCINATE (ER) 25 MG TAB.ER.24H PO SCH (09:00)
[2017-07-06] MEDS ORDERED: ISOSORBIDE MONONITRATE ER 30 MG TAB.ER.24H PO SCH (09:00)
[2017-07-06] MEDS ORDERED: ASPIRIN 81 MG PO SCH (09:00)
[2017-07-06] MEDS ORDERED: BENZONATATE 100 MG CAP PO SCH (09:00)
[2017-07-06] MEDS ORDERED: NON-FORMULARY DRUG (Omega-3 Fatty Acids/Fish Oil [Fish Oil 1,000 Mg Softgel] 1 CAP) PO SCH (09:00)
[2017-07-06] MEDS ORDERED: TICAGRELOR 90 MG TAB PO SCH (09:00)
[2017-07-06] MEDS: TICAGRELOR 90 MG TAB PO SCH (09:02)
[2017-07-06] MEDS: BENZONATATE 100 MG CAP PO SCH (09:14)
[2017-07-06] MEDS: METOPROLOL SUCCINATE (ER) 25 MG TAB.ER.24H PO SCH (09:14)
[2017-07-06] MEDS: ISOSORBIDE MONONITRATE ER 30 MG TAB.ER.24H PO SCH (09:14)
[2017-07-06] MEDS: GABAPENTIN 300 MG CAP PO SCH (09:15)
--- NOTE | 2017-07-06 09:54 | DS ---
DISCHARGE SUMMARY DATE OF ADMISSION: 07/05/2017 DATE OF DISCHARGE: 07/06/2017 DIAGNOSIS: Unstable angina. PROCEDURES PERFORMED: 1. Left heart catheterization. 2. Angioplasty of right coronary artery. HOSPITAL COURSE: This is a 66-year-old gentleman who presented to me with exertional shortness of breath and had an abnormal stress test and was advised to undergo cardiac catheterization. He came in electively in the outpatient setting for a cardiac cath which showed severe obstructive disease involving mid right coronary artery, LAD, diagonal branch and distal circ. The patient underwent angioplasty with stent placement of right coronary artery and will undergo staged angioplasty of LAD, diag and might undergo angioplasty of the circumflex coronary artery. Condition at the time of discharge, patient is comfortable at rest, free of symptoms, ambulating without any problems. PHYSICAL EXAM: Vital signs are stable. There is no jugular venous distention. Chest exam reveals good air entry bilaterally. Heart exam reveals first and second heart sounds. No gallop. Groin shows mild ecchymosis. There are no pulsatile masses. Foot pulses are intact. LABS: Show a hemoglobin of 13.9, platelet count is 202. Potassium is 4.2, creatinine is 0.7. EKG shows normal sinus rhythm without ST-T wave changes. DISCHARGE MEDICATIONS INCLUDE: 1. Aspirin. 2. Lipitor 80 mg daily. 3. Toprol-XL 25 mg daily. 4. Imdur 30 mg daily. 5. Antivert. 6. Neurontin. 7. Brilinta. 8. Sublingual nitroglycerin on p.r.n. basis. I talked to patient at length about the importance of taking Brilinta on a regular basis. FOLLOWUP: Patient will be followed up in my office in a week's time and we will schedule him for staged angioplasty of the LAD, diag and subsequently of the circumflex coronary artery. MMODL / IJN: [id number] /
== END 2017-07-06 10:37 | disposition home or self-care (01) ==
LOC: CATHCVL 07:47 → 6SEL 11:17 → CATHCVL 07-06 10:37
PROVIDERS: ATTEND Internal Medicine Cardiovascular Disease
DX: I25.110 Atherosclerotic heart disease of native coronary artery with unstable angina pectoris (principal); E78.5 Hyperlipidemia, unspecified; Z79.82 Long term (current) use of aspirin; Z79.899 Other long term (current) drug therapy; Z88.1 Allergy status to other antibiotic agents
CPT/HCPCS: 93458; 80048; 85025; C9600; C1769 ×3; C1887; C1725; C1894; C1874; C1760; J2001; J2250; J2270; J3010; J0583; Q9967 ×2

== ENCOUNTER 2017-07-19 08:59 | Day surgery (SDC) | payer BC ==
[~2017-07-19 08:59] MED LIST changes: +ALPRAZolam 0.5 MG TAB PO PRN; -ASPIRIN 325 MG TAB PO ONE; +ASPIRIN 325 MG TAB PO STA; +ATORVASTATIN 80 MG TAB PO STA; +NITROGLYCERIN SL TABS 0.4 MG TAB SUBLINGUAL PRN
[2017-07-19] MEDS ORDERED: MIDAZOLAM 2 MG/2 ML VIAL ONE (11:51)
[2017-07-19] MEDS ORDERED: LIDOCAINE 2% INJ 20 MG/ML (20 ML MDV) ONE ×2 (11:51→17:07)
[2017-07-19] MEDS ORDERED: diphenhydrAMINE 50 MG/ML 1 ML VIAL ONE (11:54)
[2017-07-19] MEDS ORDERED: diphenhydrAMINE 50 MG/ML 1 ML VIAL IVP ONE (11:59)
[2017-07-19] MEDS ORDERED: LIDOCAINE 2% INJ 20 MG/ML SQ ONE (12:02)
[2017-07-19] MEDS ORDERED: MIDAZOLAM 2 MG/2 ML VIAL IVP ONE (12:06)
[2017-07-19] MEDS ORDERED: BIVALIRUDIN BOLUS 250 MG/50 ML IV ONE (12:24)
[2017-07-19] MEDS ORDERED: BIVALIRUDIN 250 MG in SODIUM CHLORIDE 0.9% 50 ML IV ONE ×2 (12:25→12:53)
[2017-07-19] MEDS: niCARdipine Syringe (1,000 mcg/10 mL) INTRACORON ONE ×4 (12:45→13:44)
[2017-07-19] MEDS ORDERED: NITROGLYCERIN 1000MCG/10ML SYRINGE INTRACORON ONE (13:31)
[2017-07-19] MEDS ORDERED: MORPHINE SULF 5MG/10ML VL ONE (13:34)
[2017-07-19] MEDS: MORPHINE SULF 5MG/10ML VL IVP ONE ×2 (13:35→13:41)
[2017-07-19] MEDS ORDERED: MEPERIDINE 50 MG/ML SYRINGE ONE (13:52)
[2017-07-19] MEDS ORDERED: MEPERIDINE 50 MG/ML SYRINGE IVP ONE (13:55)
[2017-07-19] MEDS ORDERED: SODIUM CHLORIDE 0.9% 500 ML IV ONE ×2 (13:57→14:09)
[2017-07-19] MEDS ORDERED: IOPAMIDOL-370 100ML BTL INJ ONE ×3 (14:01→14:03)
[2017-07-19] MEDS ORDERED: IOPAMIDOL-370 125ML BTL INJ ONE (14:01)
[2017-07-19] MEDS ORDERED: ONDANSETRON 4 MG/2 ML VIAL ONE (14:06)
[2017-07-19] MEDS ORDERED: ONDANSETRON 4 MG/2 ML VIAL IVP ONE ×2 (14:09→14:15)
[2017-07-19] MEDS ORDERED: MORPHINE SULFATE 4 MG/ML SYRINGE ONE (14:28)
[2017-07-19] MEDS ORDERED: MORPHINE SULFATE 4 MG/ML SYRINGE IV ONE (14:32)
[2017-07-19] MEDS ORDERED: RX INFO: IV CONTRAST WAS GIVEN 1 EACH MISC MISCELLANE PRN (14:33)
[2017-07-19] MEDS ORDERED: ZOLPIDEM 5 MG TAB PO PRN (14:33)
[2017-07-19] MEDS ORDERED: ATROPINE SULFATE 0.1 MG/ML 10ML SYRINGE IV PRN (14:33)
[2017-07-19] MEDS ORDERED: NITROGLYCERIN SL TABS 0.4 MG TAB SUBLINGUAL PRN (14:33)
[2017-07-19] MEDS ORDERED: MAG HYDROX/AL HYDROX/SIMETH 30 ML CUP PO PRN (14:33)
[2017-07-19] MEDS ORDERED: TICAGRELOR 90 MG TAB PO STA (14:55)
[2017-07-19] MEDS: ACETAMINOPHEN TAB 325 MG TAB PO PRN (16:13)
[2017-07-19] MEDS: SODIUM CHLORIDE 0.9% 1,000 ML IV SCH (16:14)
--- NOTE | 2017-07-19 17:01 | CC ---
CARDIAC CATHETERIZATION REPORT DATE OF SERVICE: 07/19/2017. PROCEDURE PERFORMED: 1. Coronary angiography. 2. PTCA and stenting of a dominant right coronary artery within the previously placed stent as well as distal to it. 3. Orbital atherectomy and stenting of mid LAD. 4. PTCA and stenting of the major diagonal branch as well as a secondary diagonal branch coming from the same vessel. PERFORMED BY: Dr. Priscilla Fulton. SEDATION: Moderate conscious sedation time was 2 hours and 3 minutes. Patient was monitored closely for his oxygen saturation, hemodynamics and EKG. CLINICAL INFORMATION: Mr. Tino Babin is a 66-year-old gentleman with a known history of multivessel CAD, who underwent cardiac cath by Dr. Omer on July 06. At that time, he had significant disease in mid RCA which is a super dominant vessel and also disease in LAD and diagonal. I performed stenting of the RCA and advised staged intervention of the LAD and diagonal and brought him for the procedure electively. I was going to check the RCA patency before performing intervention. PROCEDURE NOTE: Under local anesthesia and strict aseptic precautions from the left femoral approach, a 6-Fijian introducer was placed in the left femoral artery. I performed coronary angiography of the RCA using a standard right Robson catheter. Coronary angiography revealed that the RCA in the distal portion of the stent had a stenosis of about 50-60% and beyond the stent also there was a narrowing of about 60%. I felt that prior to any intervention of the LAD, we should first dilate this one. Possibility of a dissection at the distal end of the stent was a consideration. I therefore recommend intervention of this vessel and then I proceeded to perform intervention of the LAD system. Left coronary injections revealed that the LAD midportion had 80-90% stenosis. The diagonal had a 70-80% stenosis. I proceeded to perform PCI of the RCA first. Using a standard right Robson catheter and a run-through wire, I crossed the lesion and I deployed a 4.0 caliber 18 mm stent distal to the previous stent and then put an additional 12 and 8 mm stents of 4.0 caliber and telescoped it back into the previously placed 15 mm 4.0 stent on July 06. After these 3 drug-eluting stents, there was excellent angiographic result noted. Remarkably good angiographic appearance and brisk flow was noted. After ensuring a good result in the RCA, I then turned my attention to the LAD. A standard left Robson guide catheter was used to cannulate the left coronary artery. I used a run-through wire to cross the lesion in the LAD and kept it distally. Using a super cross straight catheter, I exchanged this wire for a Viper wire. I then under fluoroscopic guidance, advanced the orbital atherectomy catheter and did 3 passes at a low speed. After this, I used a 12 mm NC Trek balloon of 2.5 caliber and dilated the lesion. I then deployed a 2.5 caliber NC Trek balloon of 18 mm length in the LAD. Excellent angiographic result was achieved. There was a small septal branch that was occluded causing the patient to have some chest pain requiring morphine. The patient remained hemodynamically stable. After the intervention of the LAD, I then turned my attention to the diagonal. The orbital atherectomy catheter was taken out and the Viper wire was taken out. I advanced a the same run-through wire and positioned it in the diagonal branch in one of the branches distally. Without predilatation, I deployed a 12 mm 2.75 caliber Xience stent in the diagonal branch. Excellent angiographic result was achieved, but there was sluggish flow distally and I noted that there was a very hidden lesion in one of the branches of the diagonal vessel. This had a tight lesion with sluggish flow. Possibility of some thrombus traveling distally was considered. I then chained the wire to a BMW wire and positioned the wire in the distal branch of the distal aspect of the diagonal branch and addressed this branch lesion of the diagonal branch with a 2.5 caliber 8 mm long Xience stent and deployed this. Excellent angiographic result was achieved. In the LAD system, there was a long 2.5 caliber drug-eluting stent in the LAD system. The diagonal had 2 stents, 1 in the proximal portion of 2.75 caliber and in the branch after bifurcation a 2.5 caliber 8 mm stent. Excellent angiographic result was achieved without complication. Continued to have some chest pain, received morphine, but hemodynamically was stable. The sheath was taken out and Angio-Seal device used to secure hemostasis. The patient received Angiomax bolus and infusion as per protocol. He was already on Brilinta 90 mg b.i.d. and an additional 90 mg dose was also given. Results were discussed with the patient and family and he was sent to the room in a hemodynamically stable condition with mild chest discomfort that was addressed with a mg of morphine sulfate. MMODL / IJN: [id number] /
--- NOTE | 2017-07-19 17:04 | CC ---
CARDIAC CATHETERIZATION REPORT DATE OF SERVICE: 07/19/[address] Carpio: Thank you for the opportunity to participate in the care of Mr. Babin. This gentleman had a restenoses in the distal half of the stent, possible wedge resection and therefore the RCA that was stented on July 05 had a repeat stenting with 3 additional drug-eluting stents. I then performed stenting of the LAD with orbital atherectomy and also the diagonal branch with good result. I expect he will be discharged tomorrow if he remains stable. Please find enclosed my cardiac cath report for your records and also the PCI information. The patient should be on dual antiplatelet therapy without interruption for at least 1 year and a combination of Brilinta 90 mg b.i.d. and aspirin 81 mg daily is advised. Thank you for your referral. Please call for questions. With kind personal regards, Sincerely, CHRIST / CARLOS ALBERTO: [id number] /
[2017-07-19] MEDS: GABAPENTIN 300 MG CAP PO SCH (20:19)
[2017-07-19] MEDS ORDERED: METOPROLOL SUCCINATE (ER) 25 MG TAB.ER.24H PO SCH (21:00)
[2017-07-19] MEDS ORDERED: TICAGRELOR 90 MG TAB PO SCH (21:00)
[2017-07-19] MEDS ORDERED: TEMAZEPAM 30 MG CAP PO SCH (21:00)
[2017-07-20] MEDS: ACETAMINOPHEN TAB 325 MG TAB PO PRN (03:48)
[2017-07-20] MEDS: SODIUM CHLORIDE 0.9% 1,000 ML IV SCH (04:39)
[2017-07-20 04:40] LABS: Basophils % (A) 1 %; Eosinophils # (A) 0.1 k/uL (0-0.7); Eosinophils % (A) 2 %; HCT 43.6 % (39.0-53.0); Lymphocytes # (A) 1.9 k/uL (1.0-4.8); Lymphocytes % (A) 37 %; MCH 31.2 pg (25.0-35.0); MCHC 34.5 g/dL (31.0-37.0); MCV 90.4 fL (80.0-100.0); Mean Platelet Volume 7.6; Monocytes # (A) 0.3 k/uL (0-1.0); Monocytes % (A) 7 %; Neutrophils # (A) 2.6 k/uL (1.3-7.7); Neutrophils % (A) 52 %; Platelet Count 191 k/uL (150-450); RBC 4.82 m/uL (4.30-5.90); RDW 13.2 % (11.5-15.5); WBC 5.1 k/uL (3.8-10.6)
[2017-07-20 05:08] LABS: Anion Gap 10 mmol/L; Blood Urea Nitrogen 10 mg/dL (9-20); Calcium 9.1 mg/dL (8.4-10.2); Carbon Dioxide 29 mmol/L (22-30); Chloride 102 mmol/L (98-107); Glucose 119 mg/dL (74-99); Potassium 4.5 mmol/L (3.5-5.1); Sodium 141 mmol/L (137-145)
[2017-07-20] MEDS: GABAPENTIN 300 MG CAP PO SCH (08:47)
[2017-07-20] MEDS ORDERED: BENZONATATE 100 MG CAP PO SCH (09:00)
[2017-07-20] MEDS ORDERED: METOPROLOL SUCCINATE (ER) 25 MG TAB.ER.24H PO SCH (09:00)
[2017-07-20] MEDS ORDERED: ISOSORBIDE MONONITRATE ER 30 MG TAB.ER.24H PO SCH (09:00)
[2017-07-20] MEDS ORDERED: ASPIRIN 81 MG PO SCH (09:00)
[2017-07-20] MEDS ORDERED: TICAGRELOR 90 MG TAB PO SCH (09:00)
[2017-07-20 09:02] VITALS: BP 117/73; PULSE 77; RESP 16; TEMP 97.2
[2017-07-20 09:52] VITALS: BMI 32.8
--- NOTE | 2017-07-20 10:14 | DS ---
DISCHARGE SUMMARY DATE OF ADMISSION: 07/19/2017 DATE OF DISCHARGE: 07/20/2017 PROCEDURES PERFORMED: 1. PTCA and stenting of dominant right coronary artery, which was stented on July 05. An edge dissection was noted distally and this was addressed as well as beyond the stent two other stents are deployed. Excellent angiographic result was achieved. 2. Orbital atherectomy and stenting of mid LAD. 3. PTCA and stenting of the major diagonal branch and also a secondary branch that came off from it. Mr. Tino Babin is a gentleman with history of multivessel CAD, who underwent stenting of RCA performed by me on July 05. He was brought in to check patency of this vessel and performance of orbital atherectomy of LAD calcified lesions. Coronary angiography revealed that the distal aspect of the RCA stent was compromised. There was either edge dissection or thrombus. This was addressed with 3 additional drug- eluting stents of 4.0 caliber. Excellent result was achieved. I then performed orbital atherectomy and stenting of LAD as well as stenting of a diagonal branch in its secondary branch as well. Excellent angiographic result was achieved. Procedure was performed from the left femoral approach. The patient tolerated procedure well. Results were excellent. Postprocedure course was uneventful. This morning, he is asymptomatic. Blood pressure is 118/70, pulse rate is 70 per minute. EKG revealed sinus rhythm without acute changes. Labs are normal. There is no JVD or carotid bruit. S1, S2 heard normally. Lungs are clear. Abdomen and lower extremity exam is unchanged. Plan is to increase activity and discharge the patient today and he will see Dr. Omer on Tuesday at 1:45 p.m. Discharge instructions regarding activity, diet and medications were given. MMODL / IJN: [id number] / MTDD
[2017-07-20] MEDS ORDERED: ATORVASTATIN 80 MG TAB PO SCH (21:00)
== END 2017-07-20 11:15 | disposition home or self-care (01) ==
LOC: CATHCVL 08:59 → 6SEL 14:03 → CATHCVL 07-20 11:15
PROVIDERS: ATTEND Internal Medicine Interventional Cardiology
DX: I25.10 Atherosclerotic heart disease of native coronary artery without angina pectoris (principal); I25.84 Coronary atherosclerosis due to calcified coronary lesion; I25.42 Coronary artery dissection; R07.9 Chest pain, unspecified; E78.5 Hyperlipidemia, unspecified; Z82.49 Family history of ischemic heart disease and other diseases of the circulatory system; Z95.5 Presence of coronary angioplasty implant and graft; Z79.02 Long term (current) use of antithrombotics/antiplatelets; Z79.82 Long term (current) use of aspirin; Z79.899 Other long term (current) drug therapy; Z88.1 Allergy status to other antibiotic agents
CPT/HCPCS: 93005; 93454; 80048; 85025; C9600; C9601; C9602; C1769 ×7; C1760; C1887 ×3; C1725 ×2; C1894; C1874; C1714; J2001; J2250; J2270 ×2; J1200; J2175; J2405; J0583; Q9967 ×2

== ENCOUNTER 2017-07-30 21:02 | Emergency (ER) | payer BC ==
[2017-07-30] MEDS ORDERED: NITROGLYCERIN OINT 1 INCH/GM PACKET TOPICAL STA (21:21)
[2017-07-30] MEDS ORDERED: ASPIRIN 81 MG PO STA (21:21)
[2017-07-30] MEDS ORDERED: ACETAMINOPHEN TAB 500 MG TAB PO STA (21:24)
--- NOTE | 2017-07-30 21:29 | ED ---
Chest Pain HPI - General Chief Complaint: Chest Pain Stated Complaint: Chest pain Time Seen by Provider: 07/30/17 21:09 Source: patient, family Mode of arrival: ambulatory Limitations: no limitations - History of Present Illness Initial Comments: This 66-year-old white male presents with a complaint of some chest pain. This started at approximate 7 PM tonight. He took a nitroglycerin and it did relieve the pain. It radiated minimally to his back. He denies any shortness of breath. He denies any leg pain or swelling. He does have a moderately complex recent past cardiac history. He apparently had angioplasty and/or stenting of the right coronary artery on 07/05/2017. They found significant additional coronary artery disease and decided to do a staged approach to further intervention. He apparently had an additional 5 stents placed about a week and half ago. He states that the chest pain is relieved at this time. He denies any other complaints or modifying factors. - Related Data Home Medications Medication Instructions Recorded Confirmed Gerry-3 Fatty Acids/Fish Oil [Fish 1 cap PO DAILY 05/11/17 07/30/17 Oil 1,000 mg Softgel] Aspirin 81 mg PO DAILY 06/30/17 07/30/17 Benzonatate [Benzonatate Perle] 200 mg PO DAILY 06/30/17 07/30/17 Estazolam 2 mg PO HS 07/01/17 07/30/17 Gabapentin [Neurontin] 300 mg PO BID 07/01/17 07/30/17 Isosorbide Mononitrate [Isosorbide 30 mg PO DAILY 07/01/17 07/30/17 Mononitrate ER] Meclizine [Antivert] 25 mg PO TID PRN 07/01/17 07/30/17 Metoprolol Succinate [Toprol XL] 25 mg PO HS 07/01/17 07/30/17 Nitroglycerin 0.4 mg SL DIRECTED PRN 07/01/17 07/30/17 Omeprazole [PriLOSEC] 20 mg PO AC-BRKFST 07/01/17 07/30/17 Previous Rx's Medication Instructions Recorded Atorvastatin [Lipitor] 80 mg PO HS #90 tab 07/06/17 Ticagrelor [Brilinta] 90 mg PO BID #180 tab 07/06/17 Allergies Allergy/AdvReac Type Severity Reaction Status Date / Time ciprofloxacin [From Cipro] Allergy Itching Verified 07/30/17 21:07 Review of Systems ROS Statement: Those systems with pertinent positive or pertinent negative responses have been documented in the HPI. ROS Other: All systems not noted in ROS Statement are negative. Past Medical History Past Medical History: Coronary Artery Disease (CAD), Osteoarthritis (OA) Additional Past Medical History / Comment(s): History of Diverticulitis; Kidney Stones, vertigo History of Any Multi-Drug Resistant Organisms: None Reported Past Surgical History: Appendectomy, Back Surgery, Heart Catheterization With Stent, Hernia Repair, Orthopedic Surgery Additional Past Surgical History / Comment(s): Eleazar. Wrist surgery,[facility] Shoulder Surg, [facility], cataract sx. Past Anesthesia/Blood Transfusion Reactions: No Reported Reaction Additional Past Anesthesia/Blood Transfusion Reaction / Comment(s): claustrophobia,no hx blood transfusion Date of Last Stent Placement:: 07/05/17 Past Psychological History: No Psychological Hx Reported Smoking Status: Never smoker Past Alcohol Use History: None Reported Past Drug Use History: None Reported - Past Family History Brother(s) Additional Family Medical History / Comment(s): Agnieszka Gehrig's Disease Mother Family Medical History: Cancer Additional Family Medical History / Comment(s): SKIN CANCER Father Family Medical History: Cancer Additional Family Medical History / Comment(s): SKIN CANCER General Exam - General Exam Comments Initial Comments: GENERAL: The patient is well nourished and well hydrated. VITAL SIGNS: Heart rate, blood pressure, respiratory rate reviewed as recorded in nurse's notes. EYES: Pupils are round and reactive. Extraocular movements are intact. No conjunctival / lid redness or swelling. ENT: No external evidence of injury, swelling, or ecchymosis. Airway is patent. Throat is clear. NECK: Nontender. No swelling or evidence of injury. No subcutaneous emphysema. Trachea is midline. No thyroid mass. HEART: Regular rate and rhythm. Good peripheral pulses. LUNGS/CHEST: Breath sounds clear and equal bilaterally. No rales, rhonchi, or wheezes. No ecchymosis, subcutaneous emphysema, or tenderness. ABDOMEN: Abdomen soft without tenderness. No palpable masses or organomegaly. No peritoneal signs. No abdominal wall swelling or ecchymosis. EXTREMITIES: No extremity tenderness. Normal muscle tone and function. No thoracolumbar tenderness. NEUROLOGIC: Sensation is grossly intact. Cranial nerve exam reveals face is symmetrical, tongue is midline, speech is clear. SKIN: No abrasions or ecchymosis is noted. No induration or masses noted. PSYCHIATRIC: Alert and oriented. Appropriate behavior and judgment. Limitations: no limitations Course Vital Signs 07/30/17 07/30/17 07/30/17 21:05 21:23 21:45 Temperature 97 F L Pulse Rate 68 67 73 Respiratory 18 18 18 Rate Blood Pressure 125/75 125/70 121/80 O2 Sat by Pulse 97 98 97 Oximetry Chest Pain MDM - [facility] The patient was seen and examined. All diagnostics are reviewed. The EKG shows a normal sinus rhythm at a rate of 64. There is no acute ST-T wave changes noted. The HI intervals 144, QRS duration is 86, and the QTC intervals 441. He does receive some aspirin as well as Nitropaste. The chest x-ray did not show any acute abnormalities. The laboratories unremarkable with a negative troponin. He is feeling back to normal on recheck. It is highly recommended that he be admitted to the hospital but he absolutely refuses to stay in the hospital. A long discussion was held with him and his regarding the risks and benefits of being admitted versus being discharged. He does understand that there is a risk of myocardial infarction, arrhythmia, and . I also informed him that I think that he is at significantly increased risk due to his multiple recent stents and significant coronary artery disease. He still states that he does not want to be admitted to the hospital and does understand these risks. He leaves AGAINST MEDICAL ADVICE. He does agree to return if his symptoms do reoccur or worsen and will follow-up with his terry cloth cutter hand early this next week. Disposition Clinical Impression: History of heart artery stent, Unstable angina pectoris, Chest pain, Left against medical advice Disposition: Left Against Medical Advice Condition: Fair Instructions: Chest Pain (ED), Against Medical Advice (ED) Additional Instructions: Please follow-up with her terry cloth cutter hand on Tuesday without fail. Is patient prescribed a controlled substance at d/c from ED?: No Referrals: Misael Carpio MD [Primary Care Provider] - 08/02/17 Time of Disposition: 22:42
[2017-07-30 21:45] LABS: Basophils # (A) 0.1 k/uL (0-0.2); Basophils % (A) 1 %; Eosinophils # (A) 0.1 k/uL (0-0.7); Eosinophils % (A) 2 %; HCT 44.2 % (39.0-53.0); HGB 15.9 gm/dL (13.0-17.5); Hyperchromasia Slight; Lymphocytes # (A) 2.4 k/uL (1.0-4.8); Lymphocytes % (A) 35 %; MCH 32.6 pg (25.0-35.0); MCHC 36.1 g/dL (31.0-37.0); MCV 90.4 fL (80.0-100.0); Mean Platelet Volume 6.8; Monocytes # (A) 0.5 k/uL (0-1.0); Monocytes % (A) 8 %; Neutrophils # (A) 3.6 k/uL (1.3-7.7); Neutrophils % (A) 52 %; Platelet Count 242 k/uL (150-450); RBC 4.88 m/uL (4.30-5.90); RDW 13.5 % (11.5-15.5); WBC 6.9 k/uL (3.8-10.6)
--- NOTE | 2017-07-30 21:49 | XR ---
EXAMINATION TYPE: XR chest 2V DATE OF EXAM: 07/30/2017 COMPARISON: 05/12/2017 HISTORY: Chest pain TECHNIQUE: Frontal and lateral views of the chest are obtained. FINDINGS: There is no focal air space opacity, pleural effusion, or pneumothorax seen. The cardiac silhouette size is enlarged but stable. Cervical fusion device is partially visualized. The osseous structures are intact. Mild multilevel degenerative changes of the thoracic spine are seen. IMPRESSION: No acute cardiopulmonary process.
[2017-07-30 21:53] LABS: ALT 79 U/L (21-72); AST 50 U/L (17-59); Albumin 4.4 g/dL (3.5-5.0); Alkaline Phosphatase 102 U/L (38-126); Anion Gap 13 mmol/L; Blood Urea Nitrogen 18 mg/dL (9-20); Calcium 9.3 mg/dL (8.4-10.2); Carbon Dioxide 27 mmol/L (22-30); Chloride 100 mmol/L (98-107); Glucose 166 mg/dL (74-99); Magnesium 1.8 mg/dL (1.6-2.3); Partial Thromboplastin Time 23.2 sec (22.0-30.0); Potassium 4.2 mmol/L (3.5-5.1); Prothrombin Time 9.9 sec (9.0-12.0); Sodium 140 mmol/L (137-145); Total Bilirubin 0.7 mg/dL (0.2-1.3); Total Protein 6.9 g/dL (6.3-8.2)
[2017-07-30 22:03] LABS: Creatine Kinase 145 U/L (55-170)
[2017-07-30 22:16] LABS: Creatine Kinase MB 1.1 ng/mL (0.0-2.4); Troponin I <0.012 ng/mL (0.000-0.034)
[2017-07-30 23:02] VITALS: BP 119/83; PULSE 62; RESP 16; TEMP 97.7
== END 2017-07-30 23:01 | disposition left against medical advice (07) ==
LOC: EC 21:02
DX: I20.0 Unstable angina (principal); I25.10 Atherosclerotic heart disease of native coronary artery without angina pectoris; M19.90 Unspecified osteoarthritis, unspecified site; Z53.29 Procedure and treatment not carried out because of patient's decision for other reasons; Z95.5 Presence of coronary angioplasty implant and graft; Z88.1 Allergy status to other antibiotic agents; Z79.82 Long term (current) use of aspirin; Z79.899 Other long term (current) drug therapy
CPT/HCPCS: 36415; 71046; 80053; 82550; 82553; 83735; 83880; 84484; 85025; 85610; 85730; 93005; 99285

== ENCOUNTER → 2018-01-23 | Outpatient (CLI) | payer BC ==
[2018-01-23 18:32] LABS: Anion Gap 6.3 mmol/L (4.00-12.00); Carbon Dioxide 28.7 mmol/L (21.6-31.8); Potassium 4.2 mmol/L (3.5-5.5)
== END | disposition home or self-care (01) ==
LOC: LABWHC1 14:04
PROVIDERS: ATTEND Internal Medicine Cardiovascular Disease
DX: I25.10 Atherosclerotic heart disease of native coronary artery without angina pectoris (principal)
CPT/HCPCS: 36415; 80048

== ENCOUNTER → 2020-02-20 | Outpatient (CLI) | payer MEDICARE | END | disposition home or self-care (01) | LOC: LABWHC1 10:46 | PROVIDERS: ATTEND Internal Medicine | DX: R97.20 Elevated prostate specific antigen [PSA] (principal) | CPT/HCPCS: 36415; 84153 ==

== ENCOUNTER → 2021-01-06 | Outpatient (CLI) | payer MEDICARE ==
[2021-01-06 15:38] LABS: Chol/HDL Ratio 6.7 Ratio
== END | disposition home or self-care (01) ==
LOC: LABWHC1 09:19
PROVIDERS: ATTEND Internal Medicine Interventional Cardiology
DX: E03.9 Hypothyroidism, unspecified (principal)
CPT/HCPCS: 36415; 80061; 82550; 83721; 84443; 84450; 84460

== ENCOUNTER 2021-07-17 10:54 | Emergency (ER) | payer MEDICARE ==
[2021-07-17 12:00] VITALS: TEMP 98.2
--- NOTE | 2021-07-17 12:19 | ED ---
General Adult HPI - General Chief complaint: Shortness of Breath Stated complaint: Covid Positive,ALVERTO Time Seen by Provider: 07/17/21 12:00 Source: patient, RN notes reviewed, old records reviewed Mode of arrival: wheelchair Limitations: no limitations - History of Present Illness Initial comments: This is a 70-year-old male who presents emergency department stating that 2 days ago started having a fever cough and congestion. Patient also states he has some body aches. Patient states he also little chest tightness. Her. Patient denies any current chest pain. Patient shortness of breath or difficulty breathing. Patient has a past medical history significant for prostate cancer. Patient also has a history of coronary stent. Patient states he tested positive for COVID home. He came to the emergency department with medication. - Related Data Home Medications Medication Instructions Recorded Confirmed Thornton-3 Fatty Acids/Fish Oil [Fish 1 cap PO DAILY 05/11/17 07/30/17 Oil 1,000 mg Softgel] Aspirin 81 mg PO DAILY 06/30/17 07/30/17 Benzonatate [Benzonatate Perle] 200 mg PO DAILY 06/30/17 07/30/17 Estazolam 2 mg PO HS 07/01/17 07/30/17 Gabapentin [Neurontin] 300 mg PO BID 07/01/17 07/30/17 Isosorbide Mononitrate [Isosorbide 30 mg PO DAILY 07/01/17 07/30/17 Mononitrate ER] Meclizine [Antivert] 25 mg PO TID PRN 07/01/17 07/30/17 Metoprolol Succinate [Toprol XL] 25 mg PO HS 07/01/17 07/30/17 Nitroglycerin 0.4 mg SL DIRECTED PRN 07/01/17 07/30/17 Omeprazole [PriLOSEC] 20 mg PO [id number] 07/01/17 07/30/17 Previous Rx's Medication Instructions Recorded Atorvastatin [Lipitor] 80 mg PO HS #90 tab 07/06/17 Ticagrelor [Brilinta] 90 mg PO BID #180 tab 07/06/17 Allergies Allergy/AdvReac Type Severity Reaction Status Date / Time ciprofloxacin [From Cipro] Allergy Itching Verified 07/17/21 12:00 Review of Systems ROS Statement: Those systems with pertinent positive or pertinent negative responses have been documented in the HPI. ROS Other: All systems not noted in ROS Statement are negative. Past Medical History Past Medical History: Coronary Artery Disease (CAD), Osteoarthritis (OA) Additional Past Medical History / Comment(s): History of Diverticulitis; Kidney Stones, vertigo prostate Ca History of Any Multi-Drug Resistant Organisms: None Reported Past Surgical History: Appendectomy, Back Surgery, Heart Catheterization With Stent, Hernia Repair, Orthopedic Surgery Additional Past Surgical History / Comment(s): Rachael. Wrist surgery,Rachael Shoulder Surg, [facility], cataract sx. Past Anesthesia/Blood Transfusion Reactions: No Reported Reaction Additional Past Anesthesia/Blood Transfusion Reaction / Comment(s): claustrophobia,no hx blood transfusion Date of Last Stent Placement:: 07/05/17 Past Psychological History: No Psychological Hx Reported Smoking Status: Never smoker Past Alcohol Use History: None Reported Past Drug Use History: None Reported - Past Family History Brother(s) Additional Family Medical History / Comment(s): Agnieszka Gehrig's Disease Mother Family Medical History: Cancer Additional Family Medical History / Comment(s): SKIN CANCER Father Family Medical History: Cancer Additional Family Medical History / Comment(s): SKIN CANCER General Exam - General Exam Comments Initial Comments: GENERAL: Patient is well-developed and well-nourished. Patient is nontoxic and well- hydrated and is in mild distress. ENT: Neck is soft and supple. No significant lymphadenopathy is noted. Oropharynx is clear. Moist mucous membranes. Neck has full range of motion without eliciting any pain. EYES: The sclera were anicteric and conjunctiva were pink and moist. Extraocular movements were intact and pupils were equal round and reactive to light. Eyelids were unremarkable. PULMONARY: Unlabored respirations. Good breath sounds bilaterally. No audible rales rhonchi or wheezing was noted. CARDIOVASCULAR: There is a regular rate and rhythm without any murmurs gallops or rubs. ABDOMEN: Soft and nontender with normal bowel sounds. No palpable organomegaly was noted. There is no palpable pulsatile mass. SKIN: Skin is clear with no lesions or rashes and otherwise unremarkable. NEUROLOGIC: Patient is alert and oriented x3. Cranial nerves II through XII are grossly intact. Motor and sensory are also intact. Normal speech, volume and content. Symmetrical smile. MUSCULOSKELETAL: Normal extremities with adequate strength and full range of motion. No lower extremity swelling or edema. No calf tenderness. LYMPHATICS: No significant lymphadenopathy is noted PSYCHIATRIC: Normal psychiatric evaluation. Limitations: no limitations Course Vital Signs 07/17/21 07/17/21 11:57 12:27 Temperature 98.2 F Pulse Rate 55 L 67 Respiratory 18 20 Rate Blood Pressure 114/64 115/67 O2 Sat by Pulse 96 97 Oximetry Medical Decision Making - Medical Decision Making EKG shows sinus bradycardia 58 bpm IL interval 252 QRS 116 QT interval is 4:15 QTC is 412. Patient's EKG shows no ST segment elevation or depression. Patient tested positive for COVID Patient received monoclonal antibodies. - Lab Data Lab Results 07/17/21 Range/Units 12:18 Coronavirus (PCR) Detected A (Not Detectd) Disposition Clinical Impression: COVID-19 Disposition: HOME SELF-CARE Condition: Good Instructions (If sedation given, give patient instructions): COVID-19 (Coronavirus Disease 2019) (ED) Is patient prescribed a controlled substance at d/c from ED?: No Referrals: Negar Lockwood MD [Primary Care Provider] - 1-2 days Time of Disposition: 13:13
[2021-07-17 12:27] VITALS: PULSE 67
[2021-07-17] MEDS ORDERED: BEBTELOVIMAB (EUA) 175 MG/2 ML VIAL IV ONE (13:30)
[2021-07-17 14:30] VITALS: BP 124/81; RESP 18
== END 2021-07-17 14:29 | disposition home or self-care (01) ==
LOC: EC 10:54
DX: U07.1 COVID-19 (principal); I25.10 Atherosclerotic heart disease of native coronary artery without angina pectoris; M19.90 Unspecified osteoarthritis, unspecified site; Z88.1 Allergy status to other antibiotic agents; Z79.82 Long term (current) use of aspirin; Z79.899 Other long term (current) drug therapy
CPT/HCPCS: 87635; 99284; Q0222

== ENCOUNTER 2021-08-02 16:59 | Observation (INO) | payer MEDICARE ==
--- NOTE | 2021-08-02 17:51 | ED ---
General Adult HPI - General Chief complaint: Chest Pain Stated complaint: Chest tightness/SOB Time Seen by Provider: 08/02/21 17:37 Source: patient Mode of arrival: ambulatory Limitations: no limitations - History of Present Illness Initial comments: Dictation was produced using [employer] dictation software. please excuse any grammatical, word or spelling errors. Chief Complaint: 70-year-old male presents to the emergency department for chest pain and shortness of breath History of Present Illness: Is 70-year-old male who presents emergency department for chest pain shortness of breath. Patient was seen 16 days ago where he was evaluated for COVID-19. He is given monoclonal antibodies. 4 days after being given monoclonal antibodies he started to experience symptoms of body aches, chest pressure shortness of breath. He went and saw his primary care doctor who placed patient on steroids and antibiotics. He had a repeat x- ray that showed perhaps pneumonia. Patient's history of coronary artery disease. Complains of mild chest pressure is not associated with radiation of symptoms to the extremity or jaw. There is a pleuritic component to it. The ROS documented in this emergency department record has been reviewed and confirmed by me. Those systems with pertinent positive or negative responses have been documented in the HPI. All other systems are other negative and/or noncontributory. PHYSICAL EXAM: General Impression: Alert and oriented x3, not in acute distress HEENT: Normocephalic atraumatic, extra-ocular movements intact, pupils equal and reactive to light bilaterally, mucous membranes moist. Cardiovascular: Heart regular rate and rhythm Chest: Able to complete full sentences, no retractions, no tachypnea Abdomen: abdomen soft, non-tender, non-distended, no organomegaly Musculoskeletal: Pulses present and equal in all extremities, no peripheral edema Motor: no focal deficits noted Neurological: CN II-XII grossly intact, no focal motor or sensory deficits noted Skin: Intact with no visualized rashes Psych: Normal affect and mood ED course: 70-year-old male presents emergency department for atypical chest pain typical features. Patient recently was treated for COVID-19 with monoclonal antibodies. He completed a course of antibiotics and steroids to treat pneumonia by primary care doctor. He has history of coronary artery disease presents with pressure to the chest. Vital signs upon arrival are within acceptable limits. Laboratory evaluation obtained. CBC unremarkable. Coag panel is negative. D- dimer is negative. Metabolic panel is within acceptable limits. Troponin is negative and prematurity peptide is normal. Chest x-ray shows mild no interstitial edema. He is a normal BNP however this could reflect some heart failure. Regardless, patient high-risk cardiac patient that is having chest symptoms concerning for ACS. Patient given aspirin he will be admitted to observation for cardiac monitoring and cardiology consultation. He is given aspirin and be admitted to [facility]. EKG interpretation: Ventricular rate patient is 57, sinus bradycardia,. 134, care is 101, QTc 434.. No DC prolongation, no QTC prolongation, no ST or T-wave changes noted. EKG compared to 07/17/2021 showing no changes. Overall, this EKG is unremarkable - Related Data Home Medications Medication Instructions Recorded Confirmed Metoprolol Succinate [Toprol XL] 25 mg PO DAILY 07/01/17 08/02/21 Omeprazole [PriLOSEC] 20 mg PO DAILY 07/01/17 08/02/21 Ascorbic Acid [Vitamin C] 1,000 mg PO DAILY 08/02/21 08/02/21 Aspirin EC [Ecotrin Low Dose] 81 mg PO DAILY 08/02/21 08/02/21 Atorvastatin [Lipitor] 40 mg PO DAILY 08/02/21 08/02/21 Eszopiclone [Lunesta] 3 mg PO HS 08/02/21 08/02/21 Fenofibrate Nanocrystallized 145 mg PO DAILY 08/02/21 08/02/21 [Fenofibrate] Losartan [Cozaar] 25 mg PO DAILY 08/02/21 08/02/21 Multivitamins, Thera [Multivitamin 1 tab PO DAILY 08/02/21 08/02/21 (formulary)] Ondansetron [Zofran ODT] 8 mg PO BID PRN 08/02/21 08/02/21 Pioglitazone [Actos] 30 mg PO DAILY 08/02/21 08/02/21 Pregabalin [Lyrica] 100 mg PO BID 08/02/21 08/02/21 Tamsulosin [Flomax] 0.4 mg PO DAILY 08/02/21 08/02/21 Turmeric Root Extract [Turmeric] 2,106 mg PO DAILY 08/02/21 08/02/21 Ubidecarenone [Co Q-10] 100 mg PO DAILY 08/02/21 08/02/21 Allergies Allergy/AdvReac Type Severity Reaction Status Date / Time ciprofloxacin [From Cipro] Allergy Itching Verified 08/02/21 17:11 Review of Systems ROS Statement: Those systems with pertinent positive or pertinent negative responses have been documented in the HPI. ROS Other: All systems not noted in ROS Statement are negative. Past Medical History Past Medical History: Coronary Artery Disease (CAD), Osteoarthritis (OA) Additional Past Medical History / Comment(s): History of Diverticulitis; Kidney Stones, vertigo prostate Ca History of Any Multi-Drug Resistant Organisms: None Reported Past Surgical History: Appendectomy, Back Surgery, Heart Catheterization With Stent, Hernia Repair, Orthopedic Surgery Additional Past Surgical History / Comment(s): Eleazar. Wrist surgery,Eleazar Shoulder Surg, [facility], cataract sx. Past Anesthesia/Blood Transfusion Reactions: No Reported Reaction Additional Past Anesthesia/Blood Transfusion Reaction / Comment(s): claustrophobia,no hx blood transfusion Date of Last Stent Placement:: 07/05/17 Past Psychological History: No Psychological Hx Reported Smoking Status: Never smoker Past Alcohol Use History: None Reported Past Drug Use History: None Reported - Past Family History Brother(s) Additional Family Medical History / Comment(s): Agnieszka Gehrig's Disease Mother Family Medical History: Cancer Additional Family Medical History / Comment(s): SKIN CANCER Father Family Medical History: Cancer Additional Family Medical History / Comment(s): SKIN CANCER General Exam Limitations: no limitations Course Vital Signs 08/02/21 08/02/21 08/02/21 17:06 18:13 19:27 Temperature 98.1 F 98.1 F 97.8 F Pulse Rate 56 L 54 L 50 L Respiratory 20 14 12 Rate Blood Pressure 118/73 119/58 125/70 O2 Sat by Pulse 95 93 L 97 Oximetry Medical Decision Making - Lab Data Result diagrams: 08/02/21 18:07 08/02/21 18:07 Lab Results 08/02/21 08/02/21 08/02/21 Range/Units 18:07 18:07 18:07 WBC 7.9 (3.8-10.6) k/uL RBC 4.58 (4.30-5.90) m/uL Hgb 15.2 (13.0-17.5) gm/dL Hct 44.2 (39.0-53.0) % MCV 96.7 (80.0-100.0) fL MCH 33.2 (25.0-35.0) pg MCHC 34.3 (31.0-37.0) g/dL RDW 13.5 (11.5-15.5) % Plt Count 190 (150-450) k/uL MPV 8.7 Neutrophils % 72 % Lymphocytes % 21 % Monocytes % 5 % Eosinophils % 1 % Basophils % 0 % Neutrophils # 5.7 (1.3-7.7) k/uL Lymphocytes # 1.6 (1.0-4.8) k/uL Monocytes # 0.4 (0-1.0) k/uL Eosinophils # 0.1 (0-0.7) k/uL Basophils # 0.0 (0-0.2) k/uL PT 11.0 (9.0-12.0) sec INR 1.0 (<1.2) APTT 22.6 (22.0-30.0) sec D-Dimer 0.34 (<0.60) mg/L FEU Sodium 134 L (137-145) mmol/L Potassium 4.1 (3.5-5.1) mmol/L Chloride 101 (98-107) mmol/L Carbon Dioxide 29 (22-30) mmol/L Anion Gap 4 mmol/L BUN 33 H (9-20) mg/dL Creatinine 1.03 (0.66-1.25) mg/dL Est GFR (CKD-EPI)AfAm 86 (>60 ml/min/1.73 sqM) Est GFR (CKD-EPI)NonAf 75 (>60 ml/min/1.73 sqM) Glucose 227 H (74-99) mg/dL Calcium 7.9 L (8.4-10.2) mg/dL Magnesium 2.1 (1.6-2.3) mg/dL Total Bilirubin 0.3 (0.2-1.3) mg/dL AST 21 (17-59) U/L ALT 24 (4-49) U/L Alkaline Phosphatase 105 (38-126) U/L Troponin I (0.000-0.034) ng/mL NT-Pro-B Natriuret Pep pg/mL Total Protein 5.4 L (6.3-8.2) g/dL Albumin 3.2 L (3.5-5.0) g/dL 08/02/21 08/02/21 Range/Units 18:07 18:07 WBC (3.8-10.6) k/uL RBC (4.30-5.90) m/uL Hgb (13.0-17.5) gm/dL Hct (39.0-53.0) % MCV (80.0-100.0) fL MCH (25.0-35.0) pg MCHC (31.0-37.0) g/dL RDW (11.5-15.5) % Plt Count (150-450) k/uL MPV Neutrophils % % Lymphocytes % % Monocytes % % Eosinophils % % Basophils % % Neutrophils # (1.3-7.7) k/uL Lymphocytes # (1.0-4.8) k/uL Monocytes # (0-1.0) k/uL Eosinophils # (0-0.7) k/uL Basophils # (0-0.2) k/uL PT (9.0-12.0) sec INR (<1.2) APTT (22.0-30.0) sec D-Dimer (<0.60) mg/L FEU Sodium (137-145) mmol/L Potassium (3.5-5.1) mmol/L Chloride (98-107) mmol/L Carbon Dioxide (22-30) mmol/L Anion Gap mmol/L BUN (9-20) mg/dL Creatinine (0.66-1.25) mg/dL Est GFR (CKD-EPI)AfAm (>60 ml/min/1.73 sqM) Est GFR (CKD-EPI)NonAf (>60 ml/min/1.73 sqM) Glucose (74-99) mg/dL Calcium (8.4-10.2) mg/dL Magnesium (1.6-2.3) mg/dL Total Bilirubin (0.2-1.3) mg/dL AST (17-59) U/L ALT (4-49) U/L Alkaline Phosphatase (38-126) U/L Troponin I <0.012 (0.000-0.034) ng/mL NT-Pro-B Natriuret Pep 314 pg/mL Total Protein (6.3-8.2) g/dL Albumin (3.5-5.0) g/dL Disposition Clinical Impression: Chest pain Disposition: ADMITTED IP TO THIS HOSP Condition: Fair Referrals: Negar Lockwood MD [Primary Care Provider] - 1-2 days Decision Time: 19:45
[2021-08-02 18:25] LABS: Basophils % (A) 0 %; Eosinophils # (A) 0.1 k/uL (0-0.7); Eosinophils % (A) 1 %; HCT 44.2 % (39.0-53.0); HGB 15.2 gm/dL (13.0-17.5); Lymphocytes # (A) 1.6 k/uL (1.0-4.8); Lymphocytes % (A) 21 %; MCH 33.2 pg (25.0-35.0); MCHC 34.3 g/dL (31.0-37.0); MCV 96.7 fL (80.0-100.0); Mean Platelet Volume 8.7; Monocytes # (A) 0.4 k/uL (0-1.0); Monocytes % (A) 5 %; Neutrophils # (A) 5.7 k/uL (1.3-7.7); Neutrophils % (A) 72 %; Platelet Count 190 k/uL (150-450); RBC 4.58 m/uL (4.30-5.90); RDW 13.5 % (11.5-15.5); WBC 7.9 k/uL (3.8-10.6)
[2021-08-02 18:46] LABS: Albumin 3.2 g/dL (3.5-5.0); Calcium 7.9 mg/dL (8.4-10.2); Magnesium 2.1 mg/dL (1.6-2.3); Potassium 4.1 mmol/L (3.5-5.1); Total Bilirubin 0.3 mg/dL (0.2-1.3); Total Protein 5.4 g/dL (6.3-8.2)
[2021-08-02 18:52] LABS: Partial Thromboplastin Time 22.6 sec (22.0-30.0)
--- NOTE | 2021-08-02 19:33 | XR ---
EXAMINATION TYPE: XR chest 2V DATE OF EXAM: 08/02/2021 COMPARISON: NONE HISTORY: Chest pain TECHNIQUE: 2 views FINDINGS: There is no heart failure nor confluent pneumonic infiltrate. Costophrenic angles are clear . There is right shoulder prosthesis. There are chest leads. There is some mild pulmonary interstitial edema. IMPRESSION: There is some new mild interstitial edema compared to old exam. This could be some mild a cute heart failure.
[2021-08-02] MEDS ORDERED: ASPIRIN 81 MG PO STA (19:42)
[2021-08-02] MEDS ORDERED: NITROGLYCERIN SL TABS 0.4 MG TAB SUBLINGUAL PRN (19:42)
--- NOTE | 2021-08-03 00:56 | P.HPIM ---
History of Present Illness H&P Date: 08/02/21 Chief Complaint: Chest pain 70-year-old male with diabetes mellitus, hypertension, coronary artery disease status post stents Patient comes in with 4 day history of chest pain usually associated with activity rarely happens at rest. Describes it as chest tightness retrosternal not radiating associated with dizziness lightheadedness shortness of breath and sweating denies any pop patient denies any nausea or vomiting. He also noticed some increased leg edema He was recently diagnosed with Covid about 2 weeks ago and was given monoclonal antibodies few days later he was complaining of some difficulty breathing and diffuse body aches he was given antibiotics and steroids by his primary care doctor Initial workup in the ED overall was unremarkable, troponin negative EKG no acute ST changes Review of Systems Pertinent positives as noted in HPI. All other systems were reviewed and are negative Past Medical History Past Medical History: Coronary Artery Disease (CAD), Diabetes Mellitus, Hypert ension, Osteoarthritis (OA) Additional Past Medical History / Comment(s): History of Diverticulitis; Kidney Stones, vertigo prostate Ca History of Any Multi-Drug Resistant Organisms: None Reported Past Surgical History: Appendectomy, Back Surgery, Heart Catheterization With Stent, Hernia Repair, Orthopedic Surgery Additional Past Surgical History / Comment(s): Eleazar. Wrist surgery,Eleazar Shoulder Surg, [facility], cataract sx. Past Anesthesia/Blood Transfusion Reactions: No Reported Reaction Additional Past Anesthesia/Blood Transfusion Reaction / Comment(s): claustrophobia,no hx blood transfusion Date of Last Stent Placement:: 07/05/17 Past Psychological History: No Psychological Hx Reported Smoking Status: Never smoker Past Alcohol Use History: None Reported Past Drug Use History: None Reported - Past Family History Brother(s) Additional Family Medical History / Comment(s): Agnieszka Gehrig's Disease Mother Family Medical History: Cancer Additional Family Medical History / Comment(s): SKIN CANCER Father Family Medical History: Cancer Additional Family Medical History / Comment(s): SKIN CANCER Medications and Allergies Home Medications Medication Instructions Recorded Confirmed Type Metoprolol Succinate [Toprol XL] 25 mg PO DAILY 07/01/17 08/02/21 History Omeprazole [PriLOSEC] 20 mg PO DAILY 07/01/17 08/02/21 History Ascorbic Acid [Vitamin C] 1,000 mg PO DAILY 08/02/21 08/02/21 History Aspirin EC [Ecotrin Low Dose] 81 mg PO DAILY 08/02/21 08/02/21 History Atorvastatin [Lipitor] 40 mg PO DAILY 08/02/21 08/02/21 History Eszopiclone [Lunesta] 3 mg PO HS 08/02/21 08/02/21 History Fenofibrate Nanocrystallized 145 mg PO DAILY 08/02/21 08/02/21 History [Fenofibrate] Losartan [Cozaar] 25 mg PO DAILY 08/02/21 08/02/21 History Multivitamins, Thera [Multivitamin 1 tab PO DAILY 08/02/21 08/02/21 History (formulary)] Ondansetron [Zofran ODT] 8 mg PO BID PRN 08/02/21 08/02/21 History Pioglitazone [Actos] 30 mg PO DAILY 08/02/21 08/02/21 History Pregabalin [Lyrica] 100 mg PO BID 08/02/21 08/02/21 History Tamsulosin [Flomax] 0.4 mg PO DAILY 08/02/21 08/02/21 History Turmeric Root Extract [Turmeric] 2,106 mg PO DAILY 08/02/21 08/02/21 History Ubidecarenone [Co Q-10] 100 mg PO DAILY 08/02/21 08/02/21 History Allergies Allergy/AdvReac Type Severity Reaction Status Date / Time ciprofloxacin [From Cipro] Allergy Itching Verified 08/02/21 17:11 Physical Exam Vitals: Vital Signs Temp Pulse Pulse Resp BP BP Pulse Ox 08/02/21 22:02 22 08/02/21 21:05 97.5 F L 53 L 18 118/75 96 08/02/21 19:27 97.8 F 50 L 12 125/70 97 08/02/21 18:13 98.1 F 54 L 14 119/58 93 L 08/02/21 17:06 98.1 F 56 L 20 118/73 95 Intake and Output 08/02/21 08/02/21 08/03/21 14:59 22:59 06:59 Intake Total 500 Balance 500 Intake: Oral 500 Other: Weight 108.862 kg Constitutional: No acute distress, conversant, pleasant Eyes: Anicteric sclerae, moist conjunctiva, Pupils equal round reactive to light ENMT: NC/AT Oropharynx clear, no erythema, or exudates Neck: Supple, FROM, no masses, or JVD No carotid bruits No thyromegaly Lungs: Clear to auscultation Clear to percussion Normal respiratory effort, no accessory muscle use Cardiovascular: Heart regular in rate and rhythm, No murmurs, gallops, or rubs Trace peripheral edema Abdominal: Soft Nontender, no guarding, rebound or rigidity Abdomen moving with respiration Normoactive bowel sounds No hepatomegaly, No splenomegaly No palpable mass No abdominal wall hernia noted Skin: Normal temperature, tone, texture, turgor No induration No subcutaneous nodules No rash, lesions No ulcers Extremities: No digital cyanosis No clubbing Pedal pulses intact and symmetrical Radial pulses intact and symmetrical No calf tenderness Psychiatric: Alert and oriented to person, place and time Appropriate affect fair judgement Neuro Muscles Strength 5/5 in all 4 extremities Sensation to light touch grossly present throughout Cranial nerves II-XII grossly intact No focal sensory deficits Lymphatics: no palpable cervical or supraclavicular , or inguinal lymph nodes Results CBC & Chem 7: 08/02/21 18:07 08/02/21 18:07 Labs: Abnormal Lab Results - Last 24 Hours (Table) 08/02/21 Range/Units 18:07 Sodium 134 L (137-145) mmol/L BUN 33 H (9-20) mg/dL Glucose 227 H (74-99) mg/dL Calcium 7.9 L (8.4-10.2) mg/dL Total Protein 5.4 L (6.3-8.2) g/dL Albumin 3.2 L (3.5-5.0) g/dL Thrombosis Risk Factor Assmnt - Choose All That Apply Any of the Below Risk Factors Present?: No Each Risk Factor Represents 2 Points: Age 61-74 years Thrombosis Risk Factor Assessment Total Risk Factor Score: 2 Thrombosis Risk Factor Assessment Level: Low Risk Assessment and Plan Assessment: chest pain rule out ACS History of coronary artery disease status post stents 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
[2021-08-03] MEDS ORDERED: TEMAZEPAM 15 MG CAP PO SCH (01:00)
[2021-08-03 01:36] VITALS: RESP 18
[2021-08-03] MEDS: PREGABALIN 100 MG CAP PO SCH ×2 (01:37→09:07)
[2021-08-03 07:19] LABS: Glucose,Whole Blood 114 mg/dL (75-99)
[2021-08-03] MEDS: INSULIN ASPART (NovoLOG) 100 UNIT/ML VIAL SQ SCH ×2 (07:21→12:36)
[2021-08-03] MEDS ORDERED: METOPROLOL SUCCINATE (ER) 25 MG TAB.ER.24H PO SCH (09:00)
[2021-08-03] MEDS ORDERED: NON FORMULARY DRUG (Aspirin Ec 81 MG Tablet) PO SCH (09:00)
[2021-08-03] MEDS ORDERED: PANTOPRAZOLE 40 MG TABLET PO SCH (09:00)
[2021-08-03] MEDS ORDERED: LOSARTAN 25 MG TAB PO SCH (09:00)
[2021-08-03] MEDS ORDERED: ASPIRIN 325 MG TAB PO SCH (09:00)
[2021-08-03] MEDS ORDERED: ATORVASTATIN 40 MG TAB PO SCH (09:00)
[2021-08-03] MEDS ORDERED: TAMSULOSIN 0.4 MG CAP.ER.24H PO SCH (09:00)
[2021-08-03] MEDS: HEPARIN SODIUM,PORCINE/PF 5,000 UNIT/0.5 ML SYRINGE SQ SCH ×2 (09:05→16:22)
--- NOTE | 2021-08-03 09:49 | CONS ---
CONSULTATION CHIEF COMPLAINT: Tightness in the chest. This is a 70-year-old gentleman with history of coronary artery disease, status post prior angioplasty, hypertension, diabetes and dyslipidemia who had coronavirus infection two weeks ago with involvement of the lung, and apparently he had been treated with intravenous antibodies and also received steroids. He started feeling a sense of fullness all over his body, including his legs, and had some chest tightness associated with this, due to which he presented to hospital, where he has been admitted for further evaluation. At the time of my evaluation this morning, patient appears comfortable at rest without any significant symptoms. EKG shows normal sinus rhythm without acute ischemic changes. Three sets of troponins are negative. Creatinine is normal. Hemoglobin is 15.2. Patient had cardiac catheterization and angioplasty of mid LAD and mid right coronary artery along with the diagonal branch. He sees Dr. Sanjuanita Fulton regularly in the office. PAST MEDICAL HISTORY: Significant for coronary artery disease, status post multi-vessel angioplasty, hypertension, diabetes, dyslipidemia. MEDICATIONS: Medications include Lyrica, Flomax, Actos, Zofran, Toprol-XL, Cozaar, fenofibrate, Lunesta, Lipitor, aspirin and vitamin C. ALLERGIES: CIPRO. FAMILY HISTORY: Negative for premature coronary artery disease. SOCIAL HISTORY: Negative for smoking, EtOH abuse or drug abuse. FAMILY HISTORY: Negative for premature coronary artery disease. PHYSICAL EXAMINATION: On exam, patient is comfortable at rest. Vital signs are stable. Heart rate is 50 beats per minute. Afebrile. There is no jugular venous distention. Chest exam reveals good air entry bilaterally. There are no or rhonchi. Heart exam reveals first and second heart sounds. No gallop. No murmur. No rub. Abdomen is soft, nontender. Examination of extremities did not reveal any edema. Peripheral pulses are felt. LABS: Labs show a hemoglobin of 13.2, platelet count is 190, potassium is 4.1. Creatinine is 1. AST, ALT are within normal limits. Troponins are negative. ASSESSMENT: 1. Precordial chest pain. 2. Coronary artery disease, status post multi-vessel angioplasty. 3. Recent coronavirus infection with pulmonary involvement. Patient's symptomatology seems related to the recent COVID infection. I will obtain a 2D echo to assess LV function, wall motion, and to rule out any pericardial disease. If this workup is negative, we will review his outpatient workup through Dr. Fulton's office and consider an outpatient stress test. MMODL / IJN: [id number] /
--- NOTE | 2021-08-03 10:25 | P.PN ---
Subjective Progress Note Date: 08/03/21 Hospital course: Patient is a very pleasant 70-year-old male with a past medical history of CAD status post stents, hypertension, hyperlipidemia, GERD, type II ciq-akocceq-yjtzcwwct diabetes mellitus, BPH, and recent Covid 19 virus infection. He presented to the emergency department with a chief complaint of chest tightness and shortness of breath. He underwent full evaluation in the emergency department. EKG completed revealing sinus bradycardia at 57 bpm with T-wave inversion in lead III. Chest x-ray revealing new mild interstitial edema compared to previous exam, possibly secondary to heart failure. CBC was unremarkable. CMP revealing mild hyponatremia with sodium of 134 and prerenal azotemia with BUN of 33. Mild hyperglycemia with glucose of 227. D-dimer negative at 0.34. Initial troponin negative at less than 0.012. Patient was admitted under our services with consultation to cardiology. Troponins trended throughout the night all resulting negative at less than 0.0123 draws. Patient reports chest tightness has improved but continues to have mild shortness of breath. Lipid profile revealing elevated triglycerides of 229 and elevated LDL of 45.80 with a low HDL of 28.70. Physical exam: Patient was seen and fully evaluated at bedside this morning. He was sitting up in chair and reports being eager to be discharged home. Patient on room air showing no significant acute distress at this time. He reports his chest pain has resolved however continues to have mild shortness of breath. Patient denies experiencing any palpitations, dizziness, lightheadedness, or experiencing any numbness/tingling/weakness in his extremities. Vital signs reviewed and stable. General: Nontoxic, no distress and appears stated age. Derm: Skin warm and dry, normal coloration for ethnicity. Head: Atraumatic, normocephalic and symmetric. Eyes: EOMs intact, no lid lag, and anicteric sclera Mouth: no lip lesions, mucus membranes moist Cardiovascular: regular rate and rhythm with normal S1S2, no murmur, positive posterior tibial pulses bilaterally, and cap refill < 2 seconds. Lungs: Respirations even, regular, and unlabored on room air. Lungs CTA bilat erally, no rhonchi, no rales, no wheezing, and no accessory muscle usage. Abdominal: soft, nontender to palpation, no guarding, no appreciable organomegaly Ext: ROM intact. No gross muscle atrophy, no edema, no contractures Neuro: Speech clear, face symmetrical and CN II-XII grossly intact with no noted focal neuro deficits Psych: Alert and oriented to person, place, time, and situation. Appropriate and pleasant affect. Assessment and Plan of Care: Chest pain, rule out acute coronary event -Cardiology consult, appreciate further recommendations -Telemetry monitoring -Trend troponins -Cardiac diet, NPO at midnight -Aspirin, atorvastatin losartan, fenofibrate, and metoprolol -Echocardiogram Hypertension -Monitor vital signs and continue daily medication regimen with losartan and metoprolol Hyperlipidemia Hypertriglyceridemia -Continue daily medication regimen with atorvastatin and fenofibrate -Encourage her healthy and carb consistent diet. Bqk-ashjkoj-chpbzpult diabetes mellitus type 2 -Hold oral hypoglycemic medications and place patient on sliding scale with NovoLog GERD -Continue Protonix 40 mg daily. BPH -Continue daily medication regimen with Flomax. CODE STATUS: Full code DVT prophylaxis: Heparin Discussed with: Patient and RN Anticipated discharge date: Likely tomorrow Anticipated discharge place: Home A total of 36 minutes was spent on the care of this complex patient more than 50% of the time was spent in counseling and care coordination. I reviewed the documentation as provided by the KAYLEE above, who is the original author of this note. I agree with the documented assessment and plan, with the following changes: none Objective - Vital Signs Vital signs: Vital Signs Temp 97.9 F 08/03/21 07:00 Pulse 49 L 08/03/21 08:00 Resp 18 08/03/21 07:00 BP 103/64 08/03/21 07:00 Pulse Ox 97 08/03/21 07:53 FiO2 Intake & Output 08/02/21 08/03/21 08/03/21 18:59 06:59 18:59 Intake Total 500 Balance 500 Weight 108.862 kg 108.862 kg Intake: Oral 500 Other: Voiding Method Toilet # Voids 1 - Labs CBC & Chem 7: 08/03/21 05:19 08/02/21 18:07 Labs: Abnormal Lab Results - Last 24 Hours (Table) 08/02/21 08/03/21 Range/Units 18:07 07:17 Sodium 134 L (137-145) mmol/L BUN 33 H (9-20) mg/dL Glucose 227 H (74-99) mg/dL POC Glucose (mg/dL) 114 H (75-99) mg/dL Calcium 7.9 L (8.4-10.2) mg/dL Total Protein 5.4 L (6.3-8.2) g/dL Albumin 3.2 L (3.5-5.0) g/dL
[2021-08-03 10:46] LABS: Basophils # (A) 0 X 10*3/uL (0.00-0.10); Basophils % (A) 0 %; Eosinophils # (A) 0.08 X 10*3/uL (0.04-0.35); Eosinophils % (A) 1.1 %; HCT 41.5 % (39.6-50.0); HGB 14.3 g/dL (13.0-17.0); Lymphocytes # (A) 2.13 X 10*3/uL (0.90-5.00); Lymphocytes % (A) 30.3 %; MCH 32.3 pg (27.0-32.0); MCHC 34.5 g/dL (32.0-37.0); MCV 93.7 fL (80.0-97.0); Mean Platelet Volume 11.8 fL (9.5-12.2); Monocytes % (A) 7.1 %; NRBC Per 100 WBC 0 /100 WBCS (0.0-0.0); Neutrophils # (A) 4.24 X 10*3/uL (1.80-7.70); Neutrophils % (A) 60.5 %; Platelet Count 154 X 10*3/uL (140-440); RBC 4.43 X 10*6/uL (4.40-5.60); RDW 13.3 % (11.5-14.5); WBC 7.02 X 10*3/uL (4.50-10.00)
[2021-08-03 11:29] LABS: Chol/HDL Ratio 4.25 Ratio; LDL Cholesterol,Calculated 47.5 mg/dL (0.0-131.0)
[2021-08-03] MEDS ORDERED: ACETAMINOPHEN TAB 325 MG TAB PO PRN (11:52)
[2021-08-03 12:08] LABS: Glucose,Whole Blood 241 mg/dL (75-99)
--- NOTE | 2021-08-03 14:31 | CA ---
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 18 - 58 / 22 - 52 cm??? M-MODE Aortic Root Diameter MM 3.2 cm LA Systolic Diameter MM 4.7 cm LA Ao Ratio MM 1.4 MV E Point Septal Separation 0.5 cm AV Cusp Separation MM 2.2 cm DOPPLER MV Area PHT 4.3 cm??? Mitral E Point Velocity 75.3 cm/s Mitral A Point Velocity 25.5 cm/s Mitral E to A Ratio 3.0 MV Deceleration Time 177.6 ms MV E' Velocity 6.3 cm/s Mitral E to MV E' Ratio 12.0 TR Peak Velocity 203.1 cm/s TR Peak Gradient 16.5 mmHg Right Ventricular Systolic Press 21.5 mmHg FINDINGS Left Ventricle Normal left ventricular systolic function with no obvious regional wall motion abnormalities. Right Ventricle Normal right ventricular size and function. Right ventricular systolic pressure within normal limits. Right Atrium Normal right atrial size. Left Atrium Mildly increased left atrial diameter. Moderately increased left atrial volume. Mitral Valve Structurally normal mitral valve. Mild mitral regurgitation. Aortic Valve Trileaflet aortic valve. Tricuspid Valve Structurally normal tricuspid valve. Trace to mild tricuspid regurgitation. Pulmonic Valve Structurally normal pulmonic valve. Trace pulmonic regurgitation. Pericardium Echo free space anterior to the right ventricle likely represents a fat pad. Aorta Normal size aortic root and proximal ascending aorta. CONCLUSIONS Normal left ventricle systolic function. Normal wall motion. Mild mitral regurgitation Previewed by: Dr. Tj Omer MD (Electronically Signed) Final Date: 03 Aug 2021 14:30
[2021-08-03 14:32] VITALS: BP 98/58; PULSE 54; TEMP 97.8
[2021-08-03 17:11] LABS: Glucose,Whole Blood 173 mg/dL (75-99)
--- NOTE | 2021-08-03 17:21 | P.DS ---
Providers Date of admission: 08/02/21 19:42 Expected date of discharge: 08/03/21 Attending physician: Vince Renteria MD Consults: 08/02/21 19:42 Consult Physician Urgent Consulting Provider: Emmanuelle Fulton Consult Reason/Comments: chest pain Do you want consulting provider notified?: Yes Primary care physician: Negar Lockwood MD Hospital Course: Discharge Diagnosis: Chest pain, acute coronary event ruled out. Continue current cardiac medication regimen with aspirin, atorvastatin, losartan, fenofibrate, and metoprolol. Follow up with cardiology in 1-2 weeks. Hypertension. Monitor vital signs and continue daily medication regimen with losartan and metoprolol Hyperlipidemia. Continue daily medication regimen with atorvastatin and fenofibrate. Maintain a heart healthy and carb consistent diet. Hypertriglyceridemia. Continue daily medication regimen with atorvastatin and fenofibrate. Maintain a heart healthy and carb consistent diet. Cuu-trwrpar-ssqjcstxe diabetes mellitus type 2, continue daily medication regimen. Maintain a heart healthy and carb consistent diet GERD. Continue Protonix 40 mg daily. BPH. Continue daily medication regimen with Flomax Hospital Course: Patient is a very pleasant 70-year-old male with a past medical history of CAD status post stents, hypertension, hyperlipidemia, GERD, type II pos-lazvzur-gnukjidbe diabetes mellitus, BPH, and recent Covid 19 virus infection. He presented to the emergency department with a chief complaint of chest tightness and shortness of breath. He underwent full evaluation in the emergency department. EKG completed revealing sinus bradycardia at 57 bpm with T-wave inversion in lead III. Chest x-ray revealing new mild interstitial edema compared to previous exam, possibly secondary to heart failure. CBC was unremarkable. CMP revealing mild hyponatremia with sodium of 134 and prerenal azotemia with BUN of 33. Mild hyperglycemia with glucose of 227. D-dimer negative at 0.34. Initial troponin negative at less than 0.012. Patient was admitted under our services with consultation to cardiology. Troponins trended throughout the night all resulting negative at less than 0.0123 draws. Patient reports chest tightness has improved but continues to have mild shortness of breath. Lipid profile revealing elevated triglycerides of 229 and elevated LDL of 45.80 with a low HDL of 28.70. Patient to continue daily medication regimen with atorvastatin and fenofibrate and was encouraged to maintain a heart healthy and carb consistent diet. An echocardiogram was completed, revealing a normal left ventricular systolic function, normal wall function, and mild mitral regurgitation. Cardiology clearing patient from cardiac perspective recommending outpatient follow-up in office. Patient is medically stable at this time in stable for discharge home. Patient to follow-up outpatient with PCP in 1-2 days and cardiology in 1-2 weeks. Physical exam: Vital signs reviewed and stable. General: Nontoxic, no distress and appears stated age. Derm: Skin warm and dry, normal coloration for ethnicity. Head: Atraumatic, normocephalic and symmetric. Eyes: EOMs intact, no lid lag, and anicteric sclera Mouth: no lip lesions, mucus membranes moist Cardiovascular: regular rate and rhythm with normal S1S2, no murmur, positive posterior tibial pulses bilaterally, and cap refill < 2 seconds. Lungs: Respirations even, regular, and unlabored on room air. Lungs CTA bilaterally, no rhonchi, no rales, no wheezing, and no accessory muscle usage. Abdominal: soft, nontender to palpation, no guarding, no appreciable organomegaly Ext: ROM intact. No gross muscle atrophy, no edema, no contractures Neuro: Speech clear, face symmetrical and CN II-XII grossly intact with no noted focal neuro deficits Psych: Alert and oriented to person, place, time, and situation. Appropriate and pleasant affect. A total of 31 minutes of time were spent preparing this complex discharge summary. Pt was discharged on 08/03/21 at 5:09 PM. I reviewed the documentation as provided by the KAYLEE above, who is the original author of this note. I agree with the documented assessment and plan, with the following changes: none Patient Condition at Discharge: Stable Plan - Discharge Summary Discharge Rx Participant: No New Discharge Prescriptions: Continue Metoprolol Succinate [Toprol XL] 25 mg PO DAILY Omeprazole [PriLOSEC] 20 mg PO DAILY Multivitamins, Thera [Multivitamin (formulary)] 1 tab PO DAILY Turmeric Root Extract [Turmeric] 2,106 mg PO DAILY Aspirin EC [Ecotrin Low Dose] 81 mg PO DAILY Tamsulosin [Flomax] 0.4 mg PO DAILY Pioglitazone [Actos] 30 mg PO DAILY Losartan [Cozaar] 25 mg PO DAILY Atorvastatin [Lipitor] 40 mg PO DAILY Pregabalin [Lyrica] 100 mg PO BID Ondansetron [Zofran ODT] 8 mg PO BID PRN PRN Reason: Nausea Ascorbic Acid [Vitamin C] 1,000 mg PO DAILY Ubidecarenone [Co Q-10] 100 mg PO DAILY Eszopiclone [Lunesta] 3 mg PO HS Fenofibrate Nanocrystallized [Fenofibrate] 145 mg PO DAILY Discharge Medication List Metoprolol Succinate [Toprol XL] 25 mg PO DAILY 07/01/17 [History] Omeprazole [PriLOSEC] 20 mg PO DAILY 07/01/17 [History] Ascorbic Acid [Vitamin C] 1,000 mg PO DAILY 08/02/21 [History] Aspirin EC [Ecotrin Low Dose] 81 mg PO DAILY 08/02/21 [History] Atorvastatin [Lipitor] 40 mg PO DAILY 08/02/21 [History] Eszopiclone [Lunesta] 3 mg PO HS 08/02/21 [History] Fenofibrate Nanocrystallized [Fenofibrate] 145 mg PO DAILY 08/02/21 [History] Losartan [Cozaar] 25 mg PO DAILY 08/02/21 [History] Multivitamins, Thera [Multivitamin (formulary)] 1 tab PO DAILY 08/02/21 [History] Ondansetron [Zofran ODT] 8 mg PO BID PRN 08/02/21 [History] Pioglitazone [Actos] 30 mg PO DAILY 08/02/21 [History] Pregabalin [Lyrica] 100 mg PO BID 08/02/21 [History] Tamsulosin [Flomax] 0.4 mg PO DAILY 08/02/21 [History] Turmeric Root Extract [Turmeric] 2,106 mg PO DAILY 08/02/21 [History] Ubidecarenone [Co Q-10] 100 mg PO DAILY 08/02/21 [History] Follow up Appointment(s)/Referral(s): Negar Lockwood MD [Primary Care Provider] - 1-2 days (Office closed please call to schedule a follow up appointment to follow up with your primary physician in 1-2 days.) Tj Omer MD [STAFF PHYSICIAN] - 1 Week (Office closed please call tomorrow to schedule your follow up appointment in one week.) Patient Instructions/Handouts: Chest Pain (DC) Activity/Diet/Wound Care/Special Instructions: Activity: As tolerated. Take breaks as needed. Diet: Heart healthy and carb consistent diet. Avoid salts, or foods with hidden salts such as canned or boxed foods and frozen dinners. Extra salt makes your heart work harder and traps the fluid in your body for longer. Special Instructions: Take all of your medications as directed and remember to keep all of your doctor's appointments and follow-up as needed. Thank you for allowing us to participate in your care, it was truly a pleasure having you for our patient!!! Discharge Disposition: HOME SELF-CARE
[2021-08-04] MEDS ORDERED: FENOFIBRATE 160 MG TAB PO SCH ×2 (09:00)
== END 2021-08-03 17:33 | disposition home or self-care (01) ==
LOC: EC 16:59 → 6NMEDSUR 19:42
PROVIDERS: ADMIT Internal Medicine; ATTEND Internal Medicine
DX: R07.2 Precordial pain (principal); I10 Essential (primary) hypertension; E78.5 Hyperlipidemia, unspecified; E78.1 Pure hyperglyceridemia; E11.65 Type 2 diabetes mellitus with hyperglycemia; I25.10 Atherosclerotic heart disease of native coronary artery without angina pectoris; E87.1 Hypo-osmolality and hyponatremia; I34.0 Nonrheumatic mitral (valve) insufficiency; R00.1 Bradycardia, unspecified; R60.9 Edema, unspecified; M19.90 Unspecified osteoarthritis, unspecified site; K21.9 Gastro-esophageal reflux disease without esophagitis; N40.0 Benign prostatic hyperplasia without lower urinary tract symptoms; K57.90 Diverticulosis of intestine, part unspecified, without perforation or abscess without bleeding; Z86.16 Personal history of COVID-19; Z71.3 Dietary counseling and surveillance; F40.240 Claustrophobia; Z79.899 Other long term (current) drug therapy; Z79.84 Long term (current) use of oral hypoglycemic drugs; Z79.82 Long term (current) use of aspirin; Z88.1 Allergy status to other antibiotic agents; Z95.5 Presence of coronary angioplasty implant and graft; Z87.442 Personal history of urinary calculi; Z85.46 Personal history of malignant neoplasm of prostate; Z87.01 Personal history of pneumonia (recurrent); Z98.41 Cataract extraction status, right eye; Z98.42 Cataract extraction status, left eye; Z96.1 Presence of intraocular lens; Z80.8 Family history of malignant neoplasm of other organs or systems; Z82.0 Family history of epilepsy and other diseases of the nervous system
CPT/HCPCS: 99285; 96372; 36415; 94760; 93005; 93306; 85379; 83880; 80061; 80053; 83735; 84484; 85025 ×2; 85610; 85730; 71046; G0378 ×2; J1644

== ENCOUNTER → 2021-08-18 | Outpatient (CLI) | payer MEDICARE ==
[2021-08-18 14:44] LABS: Basophils # (A) 0.02 X 10*3/uL (0.00-0.10); Basophils % (A) 0.5 %; Eosinophils # (A) 0.16 X 10*3/uL (0.04-0.35); Eosinophils % (A) 4.3 %; HCT 45.8 % (39.6-50.0); HGB 15.4 g/dL (13.0-17.0); Immature Grans, Automated 0 %; Lymphocytes # (A) 1.44 X 10*3/uL (0.90-5.00); MCH 31.8 pg (27.0-32.0); MCHC 33.6 g/dL (32.0-37.0); MCV 94.4 fL (80.0-97.0); Mean Platelet Volume 10.6 fL (9.5-12.2); Monocytes # (A) 0.43 X 10*3/uL (0.20-1.00); Monocytes % (A) 11.7 %; NRBC Per 100 WBC 0 /100 WBCS (0.0-0.0); Neutrophils # (A) 1.64 X 10*3/uL (1.80-7.70); Neutrophils % (A) 44.5 %; Platelet Count 254 X 10*3/uL (140-440); RBC 4.85 X 10*6/uL (4.40-5.60); RDW 13.4 % (11.5-14.5); WBC 3.69 X 10*3/uL (4.50-10.00)
[2021-08-18 15:04] LABS: ALT 45 U/L (10-49); AST 27 U/L (14-35); African American GFR (CKD) 101.4 (60.0-200.0); Albumin 4.6 g/dL (3.8-4.9); Albumin/Globulin Ratio 2.09 (1.60-3.17); Alkaline Phosphatase 81 U/L (41-126); BUN/Creat Ratio 23.56 Ratio (12.00-20.00); Blood Urea Nitrogen 21.2 mg/dL (9.0-27.0); Calcium 9.2 mg/dL (8.7-10.3); Chloride 101 mmol/L (96-109); Chol/HDL Ratio 3.82 Ratio; Globulin 2.2 g/dL (1.6-3.3); Glucose 165 mg/dL (70-110); LDL Cholesterol,Calculated 80.3 mg/dL (0.0-131.0); Non-African American GFR(CKD) 87.5 (60.0-200.0); Potassium 4.6 mmol/L (3.5-5.5); Sodium 138 mmol/L (135-145); Total Protein 6.8 g/dL (6.2-8.2)
[2021-08-18 15:21] LABS: Prostate Specific Antigen <0.01 ng/mL (0.00-4.50)
== END | disposition home or self-care (01) ==
LOC: LABWHC1 08:16
PROVIDERS: ATTEND Family Medicine
DX: E13.42 Other specified diabetes mellitus with diabetic polyneuropathy (principal); Z12.5 Encounter for screening for malignant neoplasm of prostate; E53.8 Deficiency of other specified B group vitamins
CPT/HCPCS: 36415; 80053; 80061; 82607; 82746; 83036; 84153; 85025

== ENCOUNTER → 2022-06-16 | Outpatient (CLI) | payer MEDICARE ==
--- NOTE | 2022-06-16 18:50 | CT ---
EXAMINATION TYPE: CT abdomen pelvis wo con DATE OF EXAM: 06/16/2022 COMPARISON: 05/11/2017 HISTORY: RT SIDED FLANK/SIDE PAIN CT DLP: 1133.50 mGycm Examination of the solid and hollow viscera is limited given the lack of contrast. FINDINGS: LUNG BASES: No evidence for nodule. No evidence for infiltrate. LIVER/GB: The gallbladder is unremarkable. No space-occupying hepatic lesion. PANCREAS: No pancreatic mass identified. No inflammatory process seen. SPLEEN: No evidence for splenomegaly. No intrasplenic lesions seen. ADRENALS: No adrenal nodules identified. No evidence for thickening. KIDNEYS: No evidence for renal mass. No nephrolithiasis. No hydronephrosis. BOWEL: Nonvisualization of the appendix. No inflammatory process right lower quadrant. No evidence of bowel obstruction. No inflammatory process. Lymph nodes: No evidence for adenopathy greater than 1 cm. Abdominal aorta: Atheromatous changes seen. No evidence for aneurysm. Genital organs: No significant abnormality. Other: Moderate to severe multilevel degenerative disc space narrowing and vacuum disc and endplate s clerosis seen throughout the lower thoracic and lumbar spine. IMPRESSION: NO ACUTE INTRA-ABDOMINAL PROCESS.
== END | disposition home or self-care (01) ==
LOC: RADCTMAIN 18:19
PROVIDERS: ATTEND Urology
DX: R10.31 Right lower quadrant pain (principal)
CPT/HCPCS: 74176

== ENCOUNTER → 2022-06-17 | Outpatient (CLI) | payer MEDICARE ==
--- NOTE | 2022-06-17 11:37 | US ---
EXAMINATION TYPE: US kidneys/renal and bladder DATE OF EXAM: 06/17/2022 COMPARISON: NONE CLINICAL HISTORY: R10.31. RLQ PAIN EXAM MEASUREMENTS: Right Kidney: 13.6 X 6.4 X 6.0 cm Left Kidney: 14.4 X 5.6 X 4.6 cm Right Kidney: No hydronephrosis or masses seen Left Kidney: No hydronephrosis or masses seen Bladder: Anechoic Bilateral Jets seen: No Urinary bladder is sonolucent. Posterior wall is normal. This appears incompletely distended. IMPRESSION: 1. Normal renal ultrasound.
== END | disposition home or self-care (01) ==
LOC: RADUSWWP 10:11
PROVIDERS: ATTEND Urology
DX: R10.31 Right lower quadrant pain (principal)
CPT/HCPCS: 76770

== ENCOUNTER 2023-02-04 09:56 | Day surgery (SDC) | payer MEDICARE ==
[2023-02-02 11:06] VITALS: BMI 34.0
[~2023-02-04 09:56] MED LIST changes: -ALPRAZolam 0.25 MG TAB PO PRN; -ALPRAZolam 0.5 MG TAB PO PRN; -ASPIRIN 325 MG TAB PO STA; -ATORVASTATIN 80 MG TAB PO STA; +LIDOCAINE 1% (10MG/ML) FOR IV START INTRADERMA PRN; -NITROGLYCERIN SL TABS 0.4 MG TAB SUBLINGUAL PRN; -SODIUM CHLORIDE 0.9% 1,000 ML in EMPTY BAG 1 BAG IV ONE
[2023-02-04] MEDS: LACTATED RINGERS 1,000 ML IV SCH ×2 (10:34→10:58)
[2023-02-04 10:48] LABS: Glucose,Whole Blood 75 mg/dL (70-110)
[2023-02-04 10:50] VITALS: RESP 16; TEMP 97.2
[2023-02-04] MEDS ORDERED: PROPOFOL 10 MG/ML 20 ML VIAL IV ONE (10:59)
--- NOTE | 2023-02-04 11:19 | P.PCN ---
Date of Procedure: 02/04/23 Procedure(s) Performed: BRIEF HISTORY: Patient is a 72-year-old pleasant white male scheduled for an elective colonoscopy as a part of screening for colon cancer. PROCEDURE PERFORMED: Colonoscopy. PREOPERATIVE DIAGNOSIS: Screening for colon cancer. IV sedation per Anesthesia. PROCEDURE: After informed consent was obtained, the patient, was brought into the endoscopy unit. IV sedation was administered by Anesthesia under continuous monitoring. Digital rectal examination was normal. Initially the Olympus CF-160 flexible video colonoscope was then inserted in the rectum, gradually advanced into the cecum without any difficulty. Careful examination was performed as the scope was gradually being withdrawn. Ileocecal valve and the appendiceal orifice were visualized and appeared normal. Prep was excellent. Mucosa of the cecum, ascending colon, transverse colon, descending colon, sigmoid colon, and rectum appeared normal. Scattered sigmoid diverticulosis. Retroflexion was performed in the rectum and no lesions were seen. The patient tolerated the procedure well. IMPRESSION: Normal-appearing colon from rectum to cecum no evidence of colorectal neoplasia . Scattered sigmoid diverticulosis. RECOMMENDATIONS: Findings of this examination were discussed with the patient as well as his family. He was advised to have a repeat screening colonoscopy in 10 years..
[2023-02-04 11:41] LABS: Glucose,Whole Blood 73 mg/dL (70-110)
[2023-02-04 11:45] VITALS: BP 109/73; PULSE 70
== END 2023-02-04 11:54 | disposition home or self-care (01) ==
LOC: ORWHC2ENDO 09:56
PROVIDERS: ATTEND Internal Medicine Gastroenterology
DX: Z12.11 Encounter for screening for malignant neoplasm of colon (principal); K57.30 Diverticulosis of large intestine without perforation or abscess without bleeding; I25.10 Atherosclerotic heart disease of native coronary artery without angina pectoris; I10 Essential (primary) hypertension; E78.5 Hyperlipidemia, unspecified; G47.33 Obstructive sleep apnea (adult) (pediatric); E11.9 Type 2 diabetes mellitus without complications; K21.9 Gastro-esophageal reflux disease without esophagitis; Z79.84 Long term (current) use of oral hypoglycemic drugs; Z79.4 Long term (current) use of insulin; Z79.899 Other long term (current) drug therapy; Z88.1 Allergy status to other antibiotic agents; Z85.46 Personal history of malignant neoplasm of prostate
CPT/HCPCS: J2704; G0121; 45378; 45380

== ENCOUNTER → 2023-05-03 | Outpatient (CLI) | payer MEDICARE ==
--- NOTE | 2023-05-03 18:01 | US ---
EXAMINATION TYPE: US abdomen complete DATE OF EXAM: 05/03/2023 COMPARISON: NONE CLINICAL INDICATION: Male, 72 years old with history of R10.13 EPIGASTRIC PAIN; pain TECHNIQUE: Multiple sonographic images of the abdomen are obtained. FINDINGS: EXAM MEASUREMENTS: Liver Length: 17.1 cm Gallbladder Wall: .2 cm CBD: .5 cm Spleen: 10.7 cm Right Kidney: 12.5 x 4.8 x 6.0 cm Left Kidney: 13.5 x 5.6 x 4.3 cm Pancreas: Limited visualization of the pancreatic tail due to shadowing from bowel gas. Otherwise, w nl Liver: Borderline in size but otherwise with normal homogeneous appearance. No focal lesion. Gallbladder: wnl CBD: wnl Spleen: wnl Right Kidney: wnl Left Kidney: wnl Upper IVC: wnl Abd Aorta: wnl IMPRESSION: 1. Borderline sized liver at 17.1 cm. 2. Otherwise, no gallstones, biliary ductal dilatation, or other specific abnormality seen.
== END | disposition home or self-care (01) ==
LOC: RADUSWWP 08:03
PROVIDERS: ATTEND Family Medicine
DX: R10.13 Epigastric pain (principal)
CPT/HCPCS: 76700

== ENCOUNTER → 2023-07-28 | Outpatient (CLI) | payer MEDICARE ==
[2023-07-28 15:05] LABS: ALT 20 U/L (10-49); AST 21 U/L (14-35); Chol/HDL Ratio 5.98 Ratio; Creatine Kinase 67 U/L (35-257); LDL Cholesterol,Calculated 124.3 mg/dL (0.0-131.0)
== END | disposition home or self-care (01) ==
LOC: LABWHC1 07:44
PROVIDERS: ATTEND Internal Medicine
DX: I25.10 Atherosclerotic heart disease of native coronary artery without angina pectoris (principal); E78.5 Hyperlipidemia, unspecified
CPT/HCPCS: 36415; 80061; 82550; 84450; 84460

== ENCOUNTER → 2024-06-21 | Outpatient (CLI) | payer MEDICARE ==
[2024-06-21 15:37] LABS: ALT 19 U/L (10-49); AST 15 U/L (14-35); Alkaline Phosphatase 90 U/L (41-126); BUN/Creat Ratio 31.25 Ratio (12.00-20.00); Calcium 9.1 mg/dL (8.7-10.3); Carbon Dioxide 26.6 mmol/L (21.6-31.8); Chloride 101 mmol/L (96-109); Chol/HDL Ratio 4.65 Ratio; Globulin 2.1 g/dL (1.6-3.3); Glucose 165 mg/dL (70-110); LDL Cholesterol,Calculated 137.5 mg/dL (0.0-131.0); Potassium 4.3 mmol/L (3.5-5.5); Sodium 139 mmol/L (135-145); Total Bilirubin 0.5 mg/dL (0.3-1.2); Total Protein 6.1 g/dL (6.2-8.2)
== END | disposition home or self-care (01) ==
LOC: LABWHC1 07:47
PROVIDERS: ATTEND Nurse Practitioner
DX: I25.10 Atherosclerotic heart disease of native coronary artery without angina pectoris (principal); E78.5 Hyperlipidemia, unspecified
CPT/HCPCS: 36415; 80053; 80061

== ENCOUNTER → 2024-09-24 | Outpatient (CLI) | payer MEDICARE ==
--- NOTE | 2024-09-25 12:27 | CT ---
EXAMINATION TYPE: CT left knee - [facility] Protocol DATE OF EXAM: 09/24/2024 12:40 PM COMPARISON: None. CLINICAL INDICATION: Male, 73 years old with history of M17.12 UNILATERAL PRIMARY OSTEOARTHRITIS, LEF T [id number] UNI, left knee thor, pain TECHNIQUE: [facility] presurgical planning of the left knee. Images were obtained in the axial plane at 2 m m thick sections through the hip and ankle and 1 mm thick sections through the knee. Reconstructed im ages in the coronal and sagittal plane are reviewed. Contrast used: mL of , (none if empty) Oral contrast used: (none if empty) CT DLP: 660 mGycm, Automated exposure control for dose reduction was used. FINDINGS: Hip: Note is made of some diverticular changes within the sigmoid colon. Bilateral hip joint spaces and mild narrowing. No acute fractures are evident. Knee: Small joint effusion is present. Lateral patellofemoral joint space narrowing is present. There is moderate to severe narrowing of the medial compartment joint space. Mild degenerative change s are in the lateral compartment. Medial and lateral femoral condylar and tibial plateau spurring is present. Ankle: No acute fracture at the ankle is evident. Some degenerative changes noted at the right ankle mortise medially. IMPRESSION: 1. CT for [facility] knee presurgical planning. [facility], Workstation: [facility], 09/25/2024 12:25 PM
== END | disposition home or self-care (01) ==
LOC: RADCTMAIN 12:11
PROVIDERS: ATTEND Orthopaedic Surgery
DX: Z01.818 Encounter for other preprocedural examination (principal); M17.12 Unilateral primary osteoarthritis, left knee

== ENCOUNTER → 2024-10-03 | Outpatient (CLI) | payer MEDICARE ==
[2024-10-03 15:42] LABS: HCT 49.1 % (39.6-50.0); HGB 17.4 g/dL (13.0-17.0); MCH 33.8 pg (27.0-32.0); MCHC 35.4 g/dL (32.0-37.0); MCV 95.3 FL (80.0-97.0); NRBC Per 100 WBC 0 X 10*3/uL (0.00-0.01); Platelet Count 235 X 10*3/uL (140-440); RBC 5.15 X 10*6/uL (4.40-5.60); RDW 12.9 % (11.5-14.5); WBC 4.85 X 10*3/uL (4.50-10.00)
[2024-10-03 16:20] LABS: BUN/Creat Ratio 20.50 Ratio (12.00-20.00); Blood Urea Nitrogen 16.4 mg/dL (9.0-27.0); Chloride 102 mmol/L (96-109); Glucose 98 mg/dL (70-110); Potassium 4.4 mmol/L (3.5-5.5); Sodium 139 mmol/L (135-145)
[2024-10-03 16:21] LABS: ALT 24 U/L (10-49); AST 30 U/L (14-35); Albumin 4.3 g/dL (3.8-4.9); Albumin/Globulin Ratio 1.87 Ratio (1.60-3.17); Alkaline Phosphatase 95 U/L (41-126); Anion Gap 12.50 mmol/L (4.00-12.00); Calcium 9.2 mg/dL (8.7-10.3); Carbon Dioxide 24.5 mmol/L (21.6-31.8); Globulin 2.3 g/dL (1.6-3.3); Total Protein 6.6 g/dL (6.2-8.2)
== END | disposition home or self-care (01) ==
LOC: LABPAT 08:54
PROVIDERS: ATTEND Orthopaedic Surgery
DX: Z01.812 Encounter for preprocedural laboratory examination (principal); M17.12 Unilateral primary osteoarthritis, left knee; Z22.322 Carrier or suspected carrier of Methicillin resistant Staphylococcus aureus
CPT/HCPCS: 80053; 83036; 85027; 87070